=== PATIENT | female | born 1950 | race Caucasian/White ===

== ENCOUNTER → 2017-03-23 | Outpatient (CLI) | payer OTHER ==
[~2017-03-23] MED LIST: ALBUTEROL0.09 MG/A2 IH; ALLEGRA180 MG PO; AMOXIL500 MG PO; ATARAX,VISTARIL50 MG PO; ATIVAN1 MG PO; BENZTROPINE ME0.5 MG PO; BIAXIN500 MG PO; BUPRO; BUPROPION SR150 MG PO; BUPROPION XL PO; CLARITIN10 MG PO; DELSYM30 MG/5 ML PO; EFFEXOR; EFFEXOR-XR150 MG PO; LATU80TA PO; LISINOPRIL5 MG PO; MEDROL DOSEPAK4 MG PO; MIRTAZAPINE15 M2 PO; NORCO 325 MG-101 TAB PO; OLANZAPINE10 MG PO; OLANZAPINE7.5 M1 PO; PRAVASTATIN SOD40 MG PO; PREDNICOT10 MG PO; PROVENTIL0.09 MG/AC IH; RESPERAL; RISPERDAL2 MG PO; RISPERDAL3 MG PO; RISPERDAL4 MG PO; TRAZADONE HYDR100 MG PO; TRAZODO50 MG PO; TRAZODONE; TRIHEXYPHENIDYL2 M3 PO; VENLAFAXINE HCL75 M1 PO; VENLAFAXINE150 MG PO; VIBRAMYCIN100 MG PO; VITAMIN D50000 I3 PO; WELLBUT; Wellbutrin Xl150 MG PO; ZITHROMAX Z PA250 MG PO; ZYPREXA15 MG PO; ZYPREXA2.5 MG PO; ZYPREXA5 M1 PO
== END | disposition home or self-care (01) ==
LOC: RAD 15:17
DX: J44.9 Chronic obstructive pulmonary disease, unspecified (principal); J84.10 Pulmonary fibrosis, unspecified

== ENCOUNTER → 2019-06-04 | Outpatient (CLI) | payer OTHER ==
[2019-06-04 14:59] LABS: BASO % 0.1 % (0.0-1.0); EOS # 0.1 10*3/uL (0.0-0.4); EOS % 1.1 % (1.0-4.0); HEMATOCRIT 43.7 % (37.0-47.0); LYMPH % 32.6 % (27.0-41.0); MEAN CELL VOLUME 91.8 fl (81.0-99.0); MEAN CORPUSCULAR HGB 30.7 pg (27.0-31.0); MEAN CORPUSCULAR HGB CONC 33.4 g/dl (33.0-37.0); MEAN PLATELET VOLUME 9.9 fl (9.6-12.3); MONO # 0.9 10*3/uL (0.1-1.0); MONO % 9.1 % (3.0-9.0); NEUT # 5.3 10*3/uL (2.3-7.9); NEUT % 56.9 % (47.0-73.0); PLATELET COUNT AUTOMATED 215 10*3/uL (130-400); RED BLOOD COUNT 4.76 10*6/uL (4.10-5.10); RED CELL DISTRI WIDTH 13.2 % (0-14.5); WHITE BLOOD COUNT 9.3 10*3/uL (4.8-10.8)
[2019-06-04 15:28] LABS: ALBUMIN 3.1 gm/dl (3.1-4.5); ALKALINE PHOSPHATASE 105 U/L (45-117); BUN 15 mg/dl (7-24); CHLORIDE 112 mmol/L (98-107); CHOLESTEROL 180 mg/dL (<200); CREATININE 0.93 mg/dL (0.55-1.02); FREE T4 0.98 ng/dl (0.76-1.46); HDL CHOLESTEROL 51 mg/dl (40-60); LDL CHOLESTEROL 105 mg/dL (9-159); POTASSIUM 3.7 mmol/L (3.5-5.1); SGOT/AST 23 IU/L (3-35); SGPT/ALT 30 U/L (12-78); SODIUM 144 mmol/L (136-145); TOTAL PROTEIN 6.5 gm/dL (6.4-8.2); TRIGLYCERIDES 121 mg/dl (<150); VLDL CHOLESTEROL 24 mg/dL (6-40)
[2019-06-04 15:35] LABS: VITAMIN D, 25-HYDROXY 19.1 ng/mL (30-100)
== END | disposition home or self-care (01) ==
LOC: LAB 13:40
PROVIDERS: Internal Medicine
DX: Z13.21 Encounter for screening for nutritional disorder (principal); Z13.220 Encounter for screening for lipoid disorders; Z13.1 Encounter for screening for diabetes mellitus; I10 Essential (primary) hypertension; E78.2 Mixed hyperlipidemia; E55.9 Vitamin D deficiency, unspecified

== ENCOUNTER 2019-11-27 13:15 | Inpatient (IN) | payer OTHER ==
[~2019-11-27] VITALS: Ht 170.1 cm; Wt 37.9 kg
[2019-11-27 12:00] VITALS: BP 100/41
[2019-11-27 13:44] VITALS: BP 132/58
[2019-11-27 13:54] LABS: BASO % 0.1 % (0.0-1.0); HEMATOCRIT 37.7 % (37.0-47.0); LYMPH % 9.9 % (27.0-41.0); MEAN CELL VOLUME 91.7 fl (81.0-99.0); MEAN CORPUSCULAR HGB 29.9 pg (27.0-31.0); MEAN CORPUSCULAR HGB CONC 32.6 g/dl (33.0-37.0); MEAN PLATELET VOLUME 9.5 fl (9.6-12.3); MONO # 0.9 10*3/uL (0.1-1.0); MONO % 8.9 % (3.0-9.0); NEUT # 7.7 10*3/uL (2.3-7.9); NEUT % 80.9 % (47.0-73.0); PLATELET COUNT AUTOMATED 184 10*3/uL (130-400); RED BLOOD COUNT 4.11 10*6/uL (4.10-5.10); RED CELL DISTRI WIDTH 13.6 % (0-14.5); WHITE BLOOD COUNT 9.6 10*3/uL (4.8-10.8)
[2019-11-27 14:10] LABS: ALBUMIN 3.1 gm/dl (3.1-4.5); CREATININE 1.18 mg/dL (0.55-1.02); POTASSIUM 4.1 mmol/L (3.5-5.1); TOTAL PROTEIN 6.2 gm/dL (6.4-8.2)
[2019-11-27 14:15] LABS: ACT PARTIAL THROMBO TIME 23.6 SECONDS (20.0-32.1); INTERNATIONAL NORM RATIO 0.9 (2.0-3.5)
--- NOTE | 2019-11-27 14:23 | NUR ---
PATIENT RETURNS BACK TO ROOM FROM RADIOLOGY. NO VOICED C/O AT THIS TIME, CALL LIGHT WITHIN REACH, BED IN LOW, SIDE RAILS UP X2, WILL CONTINUE TO MONITOR.
--- NOTE | 2019-11-27 16:20 | NUR ---
AT BEDSIDE WITH PT
--- NOTE | 2019-11-27 16:25 | NUR ---
PER PATIENT IS ABLE TO HAVE A DINNER TRAY.
[2019-11-27 18:00] VITALS: BP 133/56
[2019-11-27] MEDS ORDERED: LORAZEPAM1 MG PO (19:01)
[2019-11-27] MEDS ORDERED: BENZTROPINE ME0.5 MG PO (19:01)
--- NOTE | 2019-11-27 19:12 | NUR ---
Time: 1799 A 69 year old FEMALE admitted to 5E under services of DR. BETTY HOOPER,RUSLAN Richards Pt. arrived via bed from ER. Chief complaint: CLOED RIGHT HIP FRACTURE. JUANA WALL
--- NOTE | 2019-11-27 19:13 | NUR ---
SPOKE TO DR. HERNÁNDEZ , TELEPHONE ORDER CONTINUATION OF MEDS, EKG, PT AND PTT.
[2019-11-27 20:00] VITALS: BP 125/52
[2019-11-27 20:14] LABS: ACT PARTIAL THROMBO TIME 24.9 SECONDS (20.0-32.1)
[2019-11-28] VITALS (11 sets, daily range): BP systolic 100–127; BP diastolic 37–55
--- NOTE | 2019-11-28 06:00 | NUR ---
PATIENT SLEPT WELL. SCD IN USE. NO ACUTE DISTRESS NOTED FOR SHIFT.
--- NOTE | 2019-11-28 09:00 | NUR ---
Fabric Coating Supervisor in to talk to patient. Patient states lives at home alone with a friend that does her grocery shopping for her and cleans her house. There are 0 steps in the home. Physician: Dr. Mikie Gardner Pharmacy: [facility] services: possible on d/c Patient's level of ADLs: INDEPENDENT Patient has working utilities: yes DME: none Follow-up physician's appointment after d/c: she prefers to make her own follow up appt after discharge Does patient want to access PORTAL?: no Discharge plan discussed with patient. She lives at home alone with a friend helping her. She states she is independent in her ADLs and ambulation prior to falling. Discussed short term rehab and she refuses. She states she is going home. She wanted to know when her surgery was. Explained her surgery was scheduled for 1330. She was upset stating she was going to leave. Explained that she needs surgery on hip before she can leave. She closed her eyes and turned her head away. CM will continue to follow for any discharge planning needs. ESTEVAN HAGAN
--- NOTE | 2019-11-28 16:11 | NUR ---
Chart reviewed this date. Patient had right hip repair by Dr Eisenberg today. Patient could benefit from Occupational Therapy referral for discharge planning. Thank you. Elysia Alexander OTR/L
--- NOTE | 2019-11-28 16:40 | NUR ---
REPORT REC'D FROM PACU NURSE EBER.
--- NOTE | 2019-11-28 17:06 | NUR ---
BACK TO ROOM FOLLOWING SURGERY. VSS. NO VOICED COMPLAINTS AT THIS TIME.
--- NOTE | 2019-11-28 21:45 | NUR ---
PT C.O PAIN, NO PRN PAIN MEDS ORDERED, DR KAYE CALLED & NEW ORDER REC'D.
--- NOTE | 2019-11-28 22:11 | NUR ---
NORCO GIVEN PER PT REQUEST FOR C/O 11/15 RT HIP PAIN. WILL MONITOR.
--- NOTE | 2019-11-28 23:11 | NUR ---
PRN PAIN MED EFFECTIVE PER PT
[2019-11-29] VITALS: BP 106/46
--- NOTE | 2019-11-29 04:52 | NUR ---
NORCO GIVEN PER PT REQUEST FOR PAIN TO RT HIP
--- NOTE | 2019-11-29 05:52 | NUR ---
NORCO EFFECTIVE PER PT
[2019-11-29 06:26] LABS: BASO % 0.1 % (0.0-1.0); EOS % 0.2 % (1.0-4.0); HEMATOCRIT 32.1 % (37.0-47.0); LYMPH # 2.2 10*3/uL (1.3-4.4); LYMPH % 23.1 % (27.0-41.0); MEAN CELL VOLUME 91.2 fl (81.0-99.0); MEAN CORPUSCULAR HGB 29.8 pg (27.0-31.0); MEAN CORPUSCULAR HGB CONC 32.7 g/dl (33.0-37.0); MONO # 1.2 10*3/uL (0.1-1.0); MONO % 12.6 % (3.0-9.0); NEUT % 63.7 % (47.0-73.0); PLATELET COUNT AUTOMATED 158 10*3/uL (130-400); RED BLOOD COUNT 3.52 10*6/uL (4.10-5.10); RED CELL DISTRI WIDTH 13.5 % (0-14.5); WHITE BLOOD COUNT 9.4 10*3/uL (4.8-10.8)
[2019-11-29 08:00] VITALS: BP 113/48
--- NOTE | 2019-11-29 08:14 | NUR ---
PATIENT COMPLAINS OF RIGHT HIP PAIN 8 OF 10. GIVEN NORCO ORDERED. WILL MONITOR EFFECTIVENESS. CALL LIGHT WITHIN REACH.
--- NOTE | 2019-11-29 08:30 | NUR ---
PHYSICAL THERAPY Physical Therapy evaluation completed on 5th floor with full evaluation to follow. Recommend physical therapy per plan of care and SNF upon discharge. Thank you for this referral. Crow Hernandez SPT Ida Stern PT
--- NOTE | 2019-11-29 09:00 | NUR ---
CM in to see patient. She is sitting up in her bedside chair. Discussed short term rehab and she adamantly refuses. She states she will be returning home. Discussed her living by herself and who was going to help her at home. She states she doesn't have any help at home and she will get along just fine. She does have someone who gets her groceries for her and a cleaning lady that comes once a week. Discussed home health care services and she is agreeable. When provided with a list of facilities [facility]. CM will continue to follow for discharge planning needs.
--- NOTE | 2019-11-29 12:52 | NUR ---
Patient sitting up in her bedside chair. Discussed short term rehab and she continues to refuse. CM will continue to follow for any discharge planning needs.
[2019-11-29 13:00] VITALS: BP 104/50
--- NOTE | 2019-11-29 14:31 | NUR ---
PHYSICAL THERAPY PT SITTING IN REDCLINER UPON ARRIVAL. PT IDENTIFIED BY NAME AND . PT AGREED TO ALL TREATMENT THIS VISIT. OT PRESENT FOR TREATMENT. PT C/O 9/10 PAIN IN R HIP. PT RPEROTED "DON'T TOUCH ME" BUT WITH VC'S AND CALM TALKING PT LET THIS DINING CAR SERVER TOUCH PT FOR ASSIATANCE WITH TRANSFERS. THIS DINING CAR SERVER HELD PTS RLE AND LOWERED RECLINER. ONCE RECLINER WAS LOWERED PT PERFORMES STS TRANSFER FROM RECLINER TO FWW WITH VC'S AND TACTILE CUES FOR HAND PLACEMENT AND SAFETY. PT PERFORMED 4 STEPS FW AND 4 STEPS BW WITH FWW AND SBA. PT PERFORMED STS TO EOB WITH CGA AND VC'S FOR HAND PLACEMENT AND SAFETY. PT PERFORMES SIT TO SUPINE IN BED WITH MINaX1 OF RLE. DDEPENDANT LIFT X2 TO MOVE PT UP IN BED WITH SHEET UNDER PT. CALL LIGHT IN HAND AND BED ALARM ON AT END OF SESSION WITH NUSRING COMING IN TO ROOM. PT REPORTED NO OTHER NEEDS AT THIS TIME. PT SEE FOR 15MIN 1:1. FARNAZ DAVIS DINING CAR SERVER
--- NOTE | 2019-11-29 15:17 | NUR ---
Occupational Therapy evaluation completed on the 5th floor with full eval to follow. Moderate complexity level. Precautions: WBAT right hip, fall risk, alarm. Recommend SNF. Thank you for this referral, Mandy Doan OTR/L
[2019-11-29 20:00] VITALS: BP 99/45
--- NOTE | 2019-11-29 21:42 | NUR ---
NORCO GIVEN PER ORDER FOR PAIN IN RIGHT HIP POST SURGERY RATED "6" SEE MAR.
--- NOTE | 2019-11-29 22:40 | NUR ---
NORCO EFFECTIVE FOR PAIN PER PT.
[2019-11-30] VITALS: BP 98/46
[2019-11-30 07:24] LABS: BASO % 0.1 % (0.0-1.0); EOS % 0.6 % (1.0-4.0); HEMATOCRIT 31.2 % (37.0-47.0); LYMPH % 28.7 % (27.0-41.0); MEAN CELL VOLUME 91.2 fl (81.0-99.0); MEAN CORPUSCULAR HGB 30.1 pg (27.0-31.0); MEAN PLATELET VOLUME 9.8 fl (9.6-12.3); MONO # 0.7 10*3/uL (0.1-1.0); MONO % 10.5 % (3.0-9.0); NEUT # 4.2 10*3/uL (2.3-7.9); PLATELET COUNT AUTOMATED 150 10*3/uL (130-400); RED BLOOD COUNT 3.42 10*6/uL (4.10-5.10); RED CELL DISTRI WIDTH 13.5 % (0-14.5)
[2019-11-30 08:00] VITALS: BP 108/40
--- NOTE | 2019-11-30 09:30 | NUR ---
Pt states that pain medication was effective.
--- NOTE | 2019-11-30 11:41 | NUR ---
Pt sitting up in chair at this time. States she is currently not experiencing much pain. Denies needs at this time.
[2019-11-30 12:00] VITALS: BP 116/43
--- NOTE | 2019-11-30 14:37 | NUR ---
Assisted pt to walk from sitting in chair which was next to the window. Pt walked from chair out into mendoza and then wanted to get back to bed. Pt walked with walker and minimal assistance from staff. Assisted pt back to bed, scd's reapplied once in bed and pt requested that all 4 side rails be raised. Body alarm armed.
[2019-11-30 16:00] VITALS: BP 101/40
--- NOTE | 2019-11-30 16:13 | NUR ---
Medicated with norco per prn order for complaints of pain to rt hip pain. States pain is 3/10.
--- NOTE | 2019-11-30 17:05 | NUR ---
States that pain medication was effective.
[2019-11-30 20:00] VITALS: BP 123/42
--- NOTE | 2019-11-30 22:06 | NUR ---
MYACO GIVEN PER ORDER FOR PAIN IN RIGHT HIP HURTS WITH MOVEMENT RATED "7-8" SEE MAR.
--- NOTE | 2019-11-30 23:00 | NUR ---
NORCO EFFECTIVE FOR PAIN PER PT.
[2019-12-01] VITALS: BP 104/49
--- NOTE | 2019-12-01 01:27 | NUR ---
24 HR chart check completed.
[2019-12-01 06:53] LABS: BUN 10 mg/dl (7-24); CHLORIDE 108 mmol/L (98-107); POTASSIUM 3.5 mmol/L (3.5-5.1); SODIUM 142 mmol/L (136-145)
[2019-12-01 08:00] VITALS: BP 119/53
--- NOTE | 2019-12-01 08:23 | NUR ---
COMPLETE LINEN CHANGE PROVIDED ATTEMPTED TO PROVIDE PERICARE BUT PT REFUSED. PROVIDED BSC. PT UP WITH WALKER TO BSC. PT TOLERATED WELL. PT STATES AT THIS TIME TO NOT "TOUCH HER".SCDS OFF REFUSES TO REAPPLY. EDUCATION PROVIDED REGARDING CALL LIGHT USAGE AND NOT ATTEMPTING TO GET OUT OF BED WITHOUT ASSISTANCE. PT VOICES NO OTHER NEEDS AT THIS TIME.BED ALARM INTACT.WILL CONTINUE TO MONITOR.
--- NOTE | 2019-12-01 08:56 | NUR ---
NORCO 5/325 MG GIVEN FOR C/O RIGHT HIP/SHOULDER/ LOWER BACK PAIN.11/15.
--- NOTE | 2019-12-01 12:00 | NUR ---
PHYSICAL THERAPY PATIENT SEEN TODAY FOR 1:1 SESSION WITH THIS PT. COMPLETED SUPINE LYING BLE THER EX FOR 2 SETS OF 10 WITH FOCUS ON IMPROVING ROM AND STRENGTH. SUPINE TO SIT WITH MIN/MOD OF 1 TO EOB AND THEN COMPLETED SIT TO STAND WITH MOD OF 1. GAIT WITH FWW FOR 10 FT X 2 WITH MOD OF 1 TODAY WITH WBAT. UPON COMPLETION OF SESSION WAS PLACED UP IN RECLINER WITH CALL LIGHT IN REACH AND NURSING STAFF AWARE SHE WAS UP. D/C REC REMAIN FOR SNF BUT IMPROVEMENT NOTED WITH SESSION TODAY. STILL GETS EASILY AGITATED DURING SESSION STATING "DONT TOUCH MY BACK" LET ME DO IT ON MY OWN". THANK YOU EROS ROTH PT
--- NOTE | 2019-12-01 13:00 | NUR ---
PHYSICAL THERAPY PATIENT SEEN TODAY FOR 1:1 SESSION WITH THIS PT. SESSION CONSISTED OF SUPINE LYING THER EX FOR 2 SETS OF 15 REPS AND THEN WORKED ON BED MOBILITY ROLLING L AND R WITH RAILING FOR 4 REPS THEN SUP <> SIT WITH MIN/CGA OF 1 WITH 50% CUES. ONCE UP ON SIDE OF BED DID SEATED BALANCE ACTIVITIES THEN DID STS FROM SIDE OF BED FOR 3 REPS; REFUSED TO GET UP IN CHAIR TODAY STATING SHE WANTED TO LAY BACK DOWN AND REST. D/C PLANS REMAIN FOR SNF. THANK YOU EROS ROTH PT
--- NOTE | 2019-12-01 14:31 | NUR ---
ATIVAN 1 MG GIVEN PER PT REQUEST FOR ANXIETY.
[2019-12-01 16:00] VITALS: BP 106/49
--- NOTE | 2019-12-01 18:24 | NUR ---
NORCO 5/325 MG GIVEN FOR C/O PAIN TO BACK AND RIGHT HIP,09/15.
--- NOTE | 2019-12-01 20:00 | NUR ---
Patient resting quietly with no c/o discomfort. Respirations easy and regular. Vital signs stable. No overt distress. ALBAN BLANDON
--- NOTE | 2019-12-01 21:06 | NUR ---
MEDICATED WITH PO NORCO ORDERED PER PT REQUEST FOR C/O PAIN TO RIGHT SHOULDER AND BACK RATED 8/10.
--- NOTE | 2019-12-01 22:00 | NUR ---
MEDICATION EFFECTIVE FOR PAIN.
[2019-12-02] VITALS: BP 124/58
--- NOTE | 2019-12-02 00:57 | NUR ---
24 HR chart check completed.
--- NOTE | 2019-12-02 04:00 | NUR ---
Patient resting quietly with no c/o discomfort. Respirations easy and regular. Vital signs stable. No overt distress. ALBAN BLANDON
--- NOTE | 2019-12-02 05:35 | NUR ---
MEDICATED WITH PO NORCO ORDERED PER PT REQUEST FOR C/O PAIN TO BACK AND RIGHT SHOULDER RATED 5/10.
--- NOTE | 2019-12-02 06:30 | NUR ---
MEDICATION EFFECTIVE FOR PAIN.
[2019-12-02 08:00] VITALS: BP 108/42
--- NOTE | 2019-12-02 09:00 | NUR ---
CM in to see patient. Discussed short term rehab and she adamantly refuses. Discussed home health care services and she remains agreeable. Discussed who was going to help her at home. She states she will get along just fine. When medically stable she will be discharged to home with [facility] services.
--- NOTE | 2019-12-02 09:23 | NUR ---
OT NOTE Pt was seen this A.M. 1:1 for 20 minute OT session. Upon arrival pt was supine in bed. Pt identified by name and and had complaints of 8/10 R hip pain. Pt transferred supine to sit EOB with SBA. While sitting EOB pt donned B socks with SBA. Sit to stand completed from bed level with SBA and use of w/w for UE support. Challenged pt's static standing tolerance needed for increased I in self care tasks and functional transfers. Pt was able to tolerate aprox 3 minutes at a time before sitting due to fatigue and pain. Pt then completed functional mobility to the bedside commode with SBA and use of w/w. There she transferred on/off bedside commode with SBA and use of w/w. Functional mobility completed back to the EOB where she stated "I'm done" and transferred back into bed sit to supine with SBA. There she was left with call light in hand, tray table in place, and bed alarm activated for safety. Continue with rec D/C plan to SNF. JOLANTA Renteria/Nubia
--- NOTE | 2019-12-02 10:21 | NUR ---
PHYSICAL THERAPY TREATMENT TIME: IN 09:12 AM - 09;30 AM 22 MINUTES TOTAL Patient presented to therapy in supine in bed with head of bed elevated and bed alarm on. Patient was 8/10 R hip pain. Patient gives inforemd consent for treatment. Patient was identified by name and on wristband. Patient is somewhat grumpy this morning. Patient transferred supine to sititng on EOB with SBA. Patient does not want assisted or touched in anyway. Patient sat on EOB with SBA. Patient transferred STS <> EOB with SBA. Patient performed Patient ambulated with Wh Walker and Close Supervision/SBA for 5' x 1 to bedside commode standing tolerance. Patient STS <> bedside commode with SBA. Patient ambulated back to her bedside with Wh Walker and SBA. Patient very adament about not touching her or assisting her in any way. Patient SAT in EOB AND TRANSFERRED SIT EOB > supine with SBA. Patient was left in supine in bed with head bed elevated and bed alarm activated. Patient's tray table left near patient. Patient was 1:1 with this LOCAL DELIVERY TRUCK DRIVER for 22 minutes total. EMMETT VENTURA LOCAL DELIVERY TRUCK DRIVER
--- NOTE | 2019-12-02 13:30 | NUR ---
OT NOTE Pt was seen this P.M. 1:1 for 19 minute OT session. Upon arrival pt was supine in bed. Pt identified by name and and had complaints of 9/10 R hip pain. Pt transferred supine to sit EOB with SBA. Sit to stand completed from bed level with SBA and use of w/w for UE support. Functional mobility completed to the bathroom and back with SBA and use of w/w. While sitting in the recliner pt completed BUE towel exercises with min resistance over all planes for 1 X 10 to increase and restore maximum functional strength. Pt was left sitting upright in the recliner with call light in hand, tray table in place, and body alarm activated for safety. Continue with rec D/C plan to SNF. JOLANTA Renteria/Nubia
--- NOTE | 2019-12-02 14:01 | NUR ---
PHYSICAL THERAPY treatment time: Out 1:35 PM 18 MINUTES TOTAL Patient presented to therapy in supine with report of R hip pain that she couldnt verbalize a number to. Patient gives informed consent for treatment. Patient was identified by name and on wristband. Patient performed supine ot sitting at EOB transfer with SBA. PATIENT DOES NOT WANT THE THERAPIST TO TOUCH HER OR ASSIST WITH TRANSFER. Patient sat on EOB unassissted. Patient transferred STS from EOB with SBA. Patient performed ambulated 40' x 1 with Wh Walker and SBA with no LOB or other difficulty. Patient was left sitting in bedside chair with call light withiun reach and chair alarm tested and attached to patient. Patient did not want the chair moved to over beside the bed, so she was left in chair at foot of bed with chair alarm on. Patient was 1:1 with this WATCHSTANDER for 16 minutes total. EMMETT VENTURA WATCHSTANDER
--- NOTE | 2019-12-02 14:44 | NUR ---
CM in to see patient with Dr. Gardner. Patient is agreeable to short term rehab. When provided with a list of facilities she chose [facility]. maintenance and repair worker notified.
--- NOTE | 2019-12-02 15:00 | NUR ---
COVID SWAB SENT TO LAB
--- NOTE | 2019-12-02 15:16 | NUR ---
PRECERT IS REQUIRED. WEB DESIGNER DEVELOPER FAXED REFERRAL TO [facility]. WILL NEED COVID RESULTS.
--- NOTE | 2019-12-02 15:47 | NUR ---
MEDICATED WITH NORCO FOR COMPLAINTS OF PAIN IN RIGHT HIP. RATES PAIN AN 8 ON A PAIN SCALE OF 1-10
[2019-12-02 16:00] VITALS: BP 128/47
--- NOTE | 2019-12-02 16:30 | NUR ---
VOICES THAT NORCO WAS EFFECTIVE FOR PAIN
[2019-12-02 20:01] VITALS: BP 119/38
--- NOTE | 2019-12-02 22:31 | NUR ---
PATIENT C/O R HIP PAIN. REQUESTING A NORCO. RATES 08/15. MEDICATED AT THIS TIME. WILL CHECK EFFECTIVENESS.
--- NOTE | 2019-12-02 23:31 | NUR ---
PATIENT RESTING COMFORTABLY. MEDICATION EFFECTIVE.
[2019-12-03] VITALS: BP 149/57
[2019-12-03 06:18] LABS: EOS # 0.1 10*3/uL (0.0-0.4); EOS % 1.4 % (1.0-4.0); HEMATOCRIT 30.3 % (37.0-47.0); LYMPH # 1.9 10*3/uL (1.3-4.4); LYMPH % 33.5 % (27.0-41.0); MEAN CELL VOLUME 91.8 fl (81.0-99.0); MEAN CORPUSCULAR HGB CONC 32.7 g/dl (33.0-37.0); MEAN PLATELET VOLUME 9.2 fl (9.6-12.3); MONO # 0.7 10*3/uL (0.1-1.0); MONO % 12.4 % (3.0-9.0); NEUT # 2.9 10*3/uL (2.3-7.9); NEUT % 52.3 % (47.0-73.0); PLATELET COUNT AUTOMATED 221 10*3/uL (130-400); RED CELL DISTRI WIDTH 13.1 % (0-14.5); WHITE BLOOD COUNT 5.6 10*3/uL (4.8-10.8)
[2019-12-03 06:20] LABS: CREATININE 0.65 mg/dL (0.55-1.02)
[2019-12-03 08:00] VITALS: BP 121/62
--- NOTE | 2019-12-03 08:36 | NUR ---
Nikki called requesting additional clinicals. Faxed clinicals to [phone]
--- NOTE | 2019-12-03 11:12 | NUR ---
PHYSICAL THERAPY treatment time: 11:12 am - 11:25 am 13 minutes total Patient presented to therapy in supine wih head of bed elevated and bed alarm on. Patient reports a pain level of the R hip of 7/10. Patient had no other concerns. Patient gives informed consent. Patient was identified by name and on wristband. WBAT and no hip restrictions on the R hip. Patient performed supine <> sitting EOB with SBA. Patient performed STS from EOB with SBA. Patient ambulated 50' x 1 inside room only with SBA with Wh Walker. Patient perofmred LAQs in sititng in bedside chair 2 x 10 reps each. Patien tdid not feel like doing any further ther ex. Patient was left in sitting in bedside chair with alarm tested and attached to patient, call light within reach and tray table near patient. LEs in low position. Patient was 1:1 with this INSTRUCTOR OF NURSING for 13 minutes total. EMMETT VENTURA INSTRUCTOR OF NURSING
--- NOTE | 2019-12-03 11:20 | NUR ---
OT NOTE Pt was seen this A.M. 1:1 for 15 minute OT session. Upon arrival pt was supine in bed. Pt identified by name and and had complaints of 7-8/10 R hip pain, While sitting EOB pt donned B socks with SBA. Sit to stand completed from bed level with SBA and use of w/w for UE support functional mobility completed to the bathroom and back with SBA and use of w/w. Challenged pt's dynamic standing balance while weight shifting, crossing midline, and reaching over all planes. Pt was able to maintain F+ standing balance throughout. Pt was left sitting upright in the recliner with call light in hand, tray table in place, and body alarm activated for safety. Continue with rec D/C plan to SNF. JOLANTA Renteria/Nubia
--- NOTE | 2019-12-03 12:32 | NUR ---
PRECERT HAS BEEN STARTED FOR [facility]. [facility] HAS ACCEPTED THE PATIENT. WILL NEED COVID RESULTS BEFORE ADMISSION TO [facility].
--- NOTE | 2019-12-03 14:03 | NUR ---
OT NOTE Pt was seen this P.M. 1:1 for second OT session consisting of 15 minutes. Upon arrival pt was supine in bed. Pt identified by name and and had no complaints at this time. Pt declined any out of bed activity at this time however did agree to BUE ther ex. Pt completed BUE towel exercises over all planes for 1 X 10 with mod resistance to increase and restore maximum functional strength. Pt transferred back into bed sit to supine with SBA. THere she was left with call light in hand, tray table in place, and bed alarm activated for safety. Continue with rec D/C plan to SNF. JOLANTA Renteria/Nubia
--- NOTE | 2019-12-03 15:06 | NUR ---
PHYSICAL THERAPY TREATMENT TIME: IN 2:10 PM - 2:25 AM 15 MINUTES TOTAL Patient presented to therapy with R hip pain of 7/10. Patient was supine in bed with head of bed elevated and bed alarm on. Patient gives informed consent for treatment. Patient was identified by name and on wristband. Patient is WBAT on the R hip. Patient uses a Wh Walker. Patient performed all transfers with SBA. BED MOBILITY with SBA. Patient ambulated 50' x 1 inside room only with Close Supervision. Patient tolerated treatment well with no LOB and no increased R hip pain. Patient transferred back to supine in bed with SBA. Patient was left in supine in bed with head of bed elevated and bed alarm on. Patient's call light was left within reach. Patient was 1:1 with this CLINICAL INFORMATICS DIRECTOR for 15 minutes total. EMMETT VENTURA CLINICAL INFORMATICS DIRECTOR
--- NOTE | 2019-12-03 19:30 | NUR ---
PATIENT UPSET SHE DID NOT RECEIVE HER DINNER. PATIENT STATES SHES VERY HUNGRY. PATIENT GIVEN BOX LUNCH.
[2019-12-03 20:00] VITALS: BP 135/52
[2019-12-04] VITALS: BP 124/51
--- NOTE | 2019-12-04 01:15 | NUR ---
PATIENT C/O RIGHT HIP PAIN. RATES 07/16. MEDICATED WITH NORCO AT THIS TIME. WILL CHECK EFFECTIVENESS.
--- NOTE | 2019-12-04 02:15 | NUR ---
PATIENT STATES FORGAN IS HELPING A LITTLE. WILL CONTINUE TO MONITOR.
--- NOTE | 2019-12-04 04:00 | NUR ---
PATIENT SLEEPING, NO SIGNS OF DISTRESS. RESPIRATIONS EASY, NON LABORED. BED IN LOWEST POSITION,CALL LIGHT WITHIN REACH. BED ALARM ON. WILL CONTINUE TO MONITOR.
[2019-12-04 08:00] VITALS: BP 124/65
--- NOTE | 2019-12-04 08:03 | NUR ---
PRECERT IS PENDING. TELEVISION MAINTENANCE WORKER FAXED UPDATES TO [facility].
--- NOTE | 2019-12-04 09:09 | NUR ---
PRECERT IS PENDING. ARABIC TRANSLATOR COMPLETED HENS.
--- NOTE | 2019-12-04 09:38 | NUR ---
PHYSICAL THERAPY TREATMENT TIME: IN 09:30 AM - OUT 09:46 AM 16 MINUTES TOTAL Patient presented to therapy in supine in bed with head of bed elevated and bed alarm on. Patient reports pain in the R hip. Patient gives informed consent for treatment. Patient was identified by name and on wristband. Patient is WBAT on the R LE. Patient uses a Wh Walker. No hip precautions. Patient performed supine <> sit EOB with SBA. Patient does not want therapist to touch her or assist her in any way. Patient STS from EOB with SBA. Patient ambulated with Wh Walker Close Supervision for 45' x 1 with no LOB and no other difficulty. Patient STS from commode with SBA. Patient transferred back to supine in bed with SBA. Patient was left in supine in bed with head of bed elevated and bed alarm on. Call light within reach. Patient was 1:1 with this HABITAT MANAGEMENT COORDINATOR for 16 minutes total. EMMETT VENTURA HABITAT MANAGEMENT COORDINATOR
--- NOTE | 2019-12-04 09:40 | NUR ---
OT NOTE Pt was seen this A.M. 1:1 for 15 minute OT session. Upon arrival pt was sitting upright in the recliner. Pt identified by name and and had complaints of R hip being "sore" however did not rate on 0-10 pain scale. Pt completed sit to stand from chair level with SBA and use of w/w for UE support. Functional mobility completed to the bathroom with SBA and use of w/w. There she transferred on/off standard commode with SBA. Functional mobility completed back to the EOB with SBA and use of w/w. There she transferred sit to supine with SBA where she was left with call light in hand, tray table in place, and bed alarm activated for safety. Continue with rec D/C plan to SNF. JOLANTA Renteria/Nubia
--- NOTE | 2019-12-04 13:16 | NUR ---
OT NOTE Pt was seen this P.M. 1:1 for second OT session consisting of 15 minutes. Upon arrival pt was supine in bed. Pt identified by name and and had complaints of R hip pain which she rated a 8/10. Pt transferred supine to sit EOb with SBA. Pt donned B socks with SBA. Sit to stand completed from bed level with SBA and use of w/w. Functional mobility completed to the bathroom and back with SBA and use of w/w. Challenged pt's dynamic standing balance while weight shifting, crossing midline, and reaching over all planes. Pt was able to maintain F+ standing balance throughout. Pt was left sitting upright on the EOB with call light in hand, tray table in place, and bed alarm activated for safety. Continue with rec D/C plan to SNF. JENNIE Renteria
--- NOTE | 2019-12-04 14:40 | NUR ---
PHYSICAL THERAPY TREATMENT TIME: IN 1304 17 MINUTES TOTAL Patient presented to therapy in supine with head of bed elevated and in a very bad mood this afternoon. Patient bed alarm is on. Patient gives informed consent for treatment. Patient was identified by name and on wristband. Patient is WBAT and no hip precautions for R hip. Patient uses a Wh Walker. Patient performed supine to sitting on EOB with SBA. PATIENT DOES NOT WANT THERAPIST TO TOUCH HER OR ASSIST HER IN ANY WAY. JOLANTA Hernandez was present for treatment as witness. Patient performed gait with Wh Walker and Close Supervision for 45' x 1 with no LOB or other difficulty. STS from Commode with SBA. Patient performed 30 second STS test with 6 Sit to stands performed in 30 seconds time from EOB. Patient transferred back to supine in bed with SBA. Patient was 1:1 with this HEMATOLOGY NURSE EDUCATOR for 17 minutes total. EMMETT VENTURA HEMATOLOGY NURSE EDUCATOR
[2019-12-04 16:00] VITALS: BP 124/65
--- NOTE | 2019-12-04 16:39 | NUR ---
PATIENT HAD HARD DARK-COLORED BM. DULCOLAX SUPPOSITORY NOT NEEDED AT THIS TIME, PER PATIENT. ENCOURAGED TO REQUEST THE MED AGAIN IF NEEDED.
--- NOTE | 2019-12-04 20:00 | NUR ---
SITTING UP IN BED. NO C/O PAIN. INCISION SITE TO RT HIP ASYMTOMATIC. ASSESSMENT COMPLETED SEE FLOWSHEET. TOOK PO MEDS WITHOUT DIFFICULTY. CALL LIGHT IN REACH.
[2019-12-05] VITALS: BP 113/44
--- NOTE | 2019-12-05 07:48 | NUR ---
PRECERT IS STILL PENDING THIS MORNING PER [facility]. PRECERT WAS STARTED ON 12/03/2019.
[2019-12-05 08:00] VITALS: BP 120/48
--- NOTE | 2019-12-05 08:06 | NUR ---
INSURANCE REQUESTED UPDATED PT/OT NOTES. STRAINER MILL OPERATOR FAXED RECENT NOTES FROM YESTERDAY TO [facility]. PRECERT IS PENDING.
--- NOTE | 2019-12-05 08:29 | NUR ---
MEDICATED WITH PRN NORCO PER ORDER AND REQUEST FOR BACK PAIN.
--- NOTE | 2019-12-05 09:25 | NUR ---
OT NOTE Pt was seen this A.M. 1:1 for 15 minute OT session. Upon arrival pt was supine in bed. Pt identified by name and and had complaints of 10/10 low back pain and 5/10 R hip pain. Pt transferred supine to sit EOB with SBA. Pt donned B socks with SBA while sitting EOB. Sit to stand completed from bed level with SBA and use of w/w. Functional mobility completed to the bathroom with SBA and use of w/w. There she transferred on/off standard commode with SBA. Functional mobility completed back to the recliner with SBA and use of w/w for UE support. Pt presented with G- standing balance throughout. Pt was left sitting upright in the recliner with call light in hand and tray table in place. Attempted multiple times to sandra body alarm and pt would self remove, notified pt's nurse that she was sitting up in the chair with no alarm activated. Nurse gave approval for pt to remain in chair. Continue with rec D/C plan to SNF. JOLANTA Renteria/Nubia
--- NOTE | 2019-12-05 09:25 | NUR ---
URIEL HELPED. PATIENT UP IN CHAIR BY PHYSICAL THERAPY.
--- NOTE | 2019-12-05 09:44 | NUR ---
PHYSICAL THERAPY TREATMENT TIME: IN 09:11 - 09:21 AM 10 MINUTES Patient presented to therapy in supine in bed with head of bed elevated and bed alarm on. Patient has report of 10/10 LBP in the low back and 5/10 pain in the R hip. Patient gives informed consent. Patient was identified by name and on wristband. Patient performed supine to sitting on EOB with SBA. Patient sat on EOB with SBA. Patient completed STS from EOB with SBA. Patient ambulated with Wh Walker and Close Supervision for 72' x 1, inside room only with no LOB and safe 180 degee turns. Patient performed STS from commode with SBA. Patient was left in bedside chair with call light witin reach and LEs in low position. Patient refused the Chair alarm 2 Xs. SHEA Godinez was informed of patient refusing the chair alarm . Patient was 1:1 with this REGIONAL FACILITIES SPECIALIST for 10 minutes total. EMMETT VENTURA REGIONAL FACILITIES SPECIALIST
--- NOTE | 2019-12-05 13:30 | NUR ---
PRECERT HAS BEEN DENIED.
--- NOTE | 2019-12-05 14:00 | NUR ---
OT NOTE Pt was seen this P.M. 1:1 for 15 minute OT session. Upon arrival pt was supine in bed. Pt identified by name and and had complaints of 9/10 R hip pain. Pt transferred supine to sit EOB with SBA. Sit to stand completed from bed level with SBA and use of w/w for UE support. Challenged pt's dynamic standing balance while weight shifting, crossing midline, and reaching over all planes and pt was able to maintain F+ standing balance throughout. Functional mobility completed to the bathroom and back and around her room with SBA and use of w/w. Pt then transferred back into bed sit to supine with SBA where she was left with call light in hand, tray table in place, and bed alarm activated for safety. Continue with rec D/C plan to SNF. JOLANTA Renteria/Nubia
--- NOTE | 2019-12-05 14:07 | NUR ---
PHYSICAL THERAPY TREATMENT TIME: OUT - 1400 15 MINUTES TOTAL Patient presented to therapy in supine with head of bed elevated and bed alarm on. Patient reports pain in the R hip of 9/10 in the R hip caused by being moved by the CNAs, according to the patient. Patient gives informed consent for treatment. Patient was identified by name and on wristband. Patient performed all bed mobility and transfers with SBA. Patient ambulated 72' x 1 inside room only, with Wh Walker and Close Supervision. Patient was in pain, so she didn't want ot do any further therapy. Patient transferred back to supine in bed with SBA. Patient was left in supine in bed with head of bed elevated, call light within reach and bed alarm on. Patient was 1:1 with this POWDER ROOM ATTENDANT for 15 minutes total. EMMETT VENTURA POWDER ROOM ATTENDANT
--- NOTE | 2019-12-05 14:56 | NUR ---
Notified Dr. Gardner of SNF denial. Peer to peer set up. Awaiting response.
[2019-12-05 16:00] VITALS: BP 116/46
--- NOTE | 2019-12-05 18:14 | NUR ---
MEDICATED WITH PRN MORCO PER ORDER AND REQUEST FOR C/O R HIP AND BACK PAIN.
[2019-12-06] VITALS: BP 142/65
--- NOTE | 2019-12-06 00:03 | NUR ---
PATIENT MEDICATED WITH NORCO FOR COMPLAINTS OF RIGHT LEG PAIN. WILL MONITOR FOR EFFECTIVENESS. CALL LIGHT IN REACH.
--- NOTE | 2019-12-06 00:55 | NUR ---
NORCO EFFECTIVE AT THIS TIME. PATIENT IN BED SLEEPING. NO SIGNS OR SYMPTOMS OF DISTRESS NOTED. CALL LIGHT IN REACH.
[2019-12-06 06:32] LABS: BASO % 0.2 % (0.0-1.0); EOS # 0.1 10*3/uL (0.0-0.4); EOS % 0.9 % (1.0-4.0); HEMATOCRIT 33.2 % (37.0-47.0); LYMPH # 2.2 10*3/uL (1.3-4.4); LYMPH % 33.6 % (27.0-41.0); MEAN CELL VOLUME 92.7 fl (81.0-99.0); MEAN CORPUSCULAR HGB 30.2 pg (27.0-31.0); MEAN CORPUSCULAR HGB CONC 32.5 g/dl (33.0-37.0); MEAN PLATELET VOLUME 8.8 fl (9.6-12.3); MONO # 0.7 10*3/uL (0.1-1.0); MONO % 11.2 % (3.0-9.0); NEUT # 3.5 10*3/uL (2.3-7.9); NEUT % 53.8 % (47.0-73.0); PLATELET COUNT AUTOMATED 323 10*3/uL (130-400); RED BLOOD COUNT 3.58 10*6/uL (4.10-5.10); RED CELL DISTRI WIDTH 13.3 % (0-14.5); WHITE BLOOD COUNT 6.5 10*3/uL (4.8-10.8)
[2019-12-06 07:02] LABS: CREATININE 0.63 mg/dL (0.55-1.02)
--- NOTE | 2019-12-06 07:29 | NUR ---
DENIAL HAS BEEN OVER TURNED. PRECERT HAS BEEN OBTAINED. PATIENT CAN GO TO [facility] IF MEDICALLY STABLE. CRIMPER OPERATOR HAS BEEN NOTIFIED.
--- NOTE | 2019-12-06 07:30 | NUR ---
Notified Dr. Gardner patient can be discharged to [facility] when medically stable.
[2019-12-06 08:00] VITALS: BP 124/62
--- NOTE | 2019-12-06 08:20 | NUR ---
OT NOTE Pt was seen this A.M. 1:1 for 30 minute OT session. Upon arrival pt was supine in bed. Pt identified by name and and had complaints of 5/10 R hip pain. Pt transferred supine to sit EOB with SBA. Sit to stand completed from bed level with SBA followed by functional mobility to the bathroom and back with SBA and use of w/w. While sitting EOB pt doffed gown with SBA. Completed upper body and lower body bathing with SBA. Pt donned new socks and underpants with Sweta due to requiring assist for donning over her R foot due to pain. Pt donned new gown with SBA and completed hair care SBA. Pt was left sitting upright on the EOB with call light in hand, tray table in place, and bed alarm activated for safety. Continue with rec D/C plan to SNF. JOLANTA Renteria/Nubia
--- NOTE | 2019-12-06 09:10 | NUR ---
PHYSICAL THERAPY TREATMENT TIME: IN 07:58 - OUT 09:20 AM 22 MINUTES TOTAL Patient presented to therapy in supine with head of bed elevated and bed aalrm on. Patient gives a 5/10 pain level in the R hip. Patient gives informed consent for treatment. Patient was identified by name and on wristband. Patient performed upine to sitting on EOB with SBA. Patient performed STS from EOB with SBA. Patient ambulated with Wh Walker and Close Supervison for 48' x 1 with no LOB with 180 degree turns. Patient sat on EOB for 10 minutes sitting tolerance with SBA. Patient transferred back to supine in bed with SBA. Patient was left in sitting on EOB with tray table and breakfast in front of her with call light within reach. Patient was 1:1 with this TEXTILE CUTTING MACHINE OPERATOR for 22 minutes total. JOLANTA Boston was presnt as witness to this treatment. EMMETT VENTURA TEXTILE CUTTING MACHINE OPERATOR
--- NOTE | 2019-12-06 10:34 | NUR ---
OT NOTE Pt was seen this A.M. 1:1 for second OT session consisting of 15 minutes. Upon arrival pt was sitting EOB with bed alarm sounding. Pt requesting to go to the bathroom. Pt identified by name and and had complaints of 9/10 R hip and low back pain. Sit to stand completed from bed level with SBA followed by functional mobility to the bathroom with SBA and use of w/w. There she transferred on/off standard commode with SBA and use of w/w. Clothing management completed with SBA and toilet hygiene completed with supervision while seated. Pt then stood sink side to wash her hands with SBA. While reaching for the paper towel pt had one retrograde LOB that required Sweta to correct. Functional mobility completed back to the EOB where pt was requesting to rest at this time due to pain. Pt transferred sit to supine with SBA. There she was left with call light in hand, tray table in place, and bed alarm activated for safety. Continue with rec D/C plan to SNF. JOLANTA Renteria/Nubia
[2019-12-06] MEDS ORDERED: HYDROCODONE-AC1 EAC1 PO (12:24)
[2019-12-06] MEDS ORDERED: FLEET ENEMA 13133 ML R (12:24)
[2019-12-06] MEDS ORDERED: ENOXAPARIN30 MG/0.2 SC (12:24)
--- NOTE | 2019-12-06 13:15 | NUR ---
PHYSICAL THERAPY TREATMENT TIME: 17 MINUTES TOTAL OUT 12:30 PM Patient presented to therapy in supine with head of bed elevated and bed alarm on. Patient says she has increased pain in the R hip. Patient was identified by name and on wristband. Patient completed sit to stand from EOB with SBA. Patient ambulated with Walker and CGA for 50' X 1 and Close Supervision. Patient had no LOB with gait. Patient did complain of some increased pain in the R hip this afternoon. Patient transferred back to supine in bed with SBA. Patient was left in supine in bed with head of bed elevated and bed alarm on. Patient was 1:1 with this PLASTICS FACTORY WORKER for 17 minutes. EMMETT VENTURA PLASTICS FACTORY WORKER
--- NOTE | 2019-12-06 14:22 | NUR ---
PHYSICAL THERAPY CO-SIGN I approve of the Physical Therapy notes written above. Ida Stern PT
--- NOTE | 2019-12-06 14:34 | NUR ---
OCCUPATIONAL THERAPY CO-SIGN I approve of the Occupational Therapy notes written above. TYRELL BERNABE OTR/Nubia
--- NOTE | 2019-12-06 15:08 | NUR ---
BINDERY MACHINE TENDER SPOKE WITH SHEA MEJIA ABOUT DISCHARGE. BINDERY MACHINE TENDER ARRANGED FOR [facility] TO TRANSPORT THE PATIENT AT 4PM AND WOULD MEET STAFF AT THE FRONT DOORS. BINDERY MACHINE TENDER MADE ADAMA AWARE. BINDERY MACHINE TENDER CONTACTED LISSA KAPLAN AND LEFT MESSAGE ON VOICEMAIL. WILL FAX DISCHARGE ORDERS TO [facility].
--- NOTE | 2019-12-06 15:09 | NUR ---
PATIENT TO BE DISCHARGED AT 1600.
--- NOTE | 2019-12-06 15:20 | NUR ---
MEDICATED WITH PRN NORCO PER ORDER AND REQUEST FOR R HIP PAIN.
--- NOTE | 2019-12-06 16:09 | NUR ---
PATIENT DISCHARGED TO [facility].
--- NOTE | 2019-12-06 16:14 | NUR ---
NURSE TO NURSE GIVEN TO KAYLENE.
== END 2019-12-06 16:09 | disposition other institution (70) | DRG 481 ==
LOC: ED 13:15 → 5E 14:51 → EDHOLD 14:51 → 5E 16:20
PROVIDERS: Emergency Medicine; Orthopaedic Surgery; ADMIT Internal Medicine; ATTEND Internal Medicine
PROC: 0QS606Z Reposition Right Upper Femur with Intramedullary Internal Fixation Device, Open Approach (ICD-10-PCS; principal; 2019-11-28)
DX: S72.141A Displaced intertrochanteric fracture of right femur, initial encounter for closed fracture (principal); F33.9 Major depressive disorder, recurrent, unspecified; E44.1 Mild protein-calorie malnutrition; Z68.1 Body mass index [BMI] 19.9 or less, adult; K59.09 Other constipation; E55.9 Vitamin D deficiency, unspecified; E78.2 Mixed hyperlipidemia; F41.1 Generalized anxiety disorder; R62.7 Adult failure to thrive; G89.29 Other chronic pain; M54.5 Low back pain; Z20.828 Contact with and (suspected) exposure to other viral communicable diseases; W18.39XA Other fall on same level, initial encounter; Z88.6 Allergy status to analgesic agent; Z90.49 Acquired absence of other specified parts of digestive tract; Y93.89 Activity, other specified; Y92.098 Other place in other non-institutional residence as the place of occurrence of the external cause; Y99.8 Other external cause status

== ENCOUNTER 2019-12-17 14:58 | Inpatient (IN) | payer OTHER ==
[~2019-12-17] VITALS: Ht 170.1 cm; Wt 40.4 kg
[~2019-12-17 14:58] MED LIST changes: +ENOXAPARIN30 MG/0.2 SC; +FLEET ENEMA 13133 ML R; +HYDROCODONE-AC1 EAC1 PO; +LORAZEPAM1 MG PO
[2019-12-17 15:23] VITALS: BP 85/49
[2019-12-17 16:16] LABS: EOS % 0.5 % (1.0-4.0); HEMATOCRIT 40.7 % (37.0-47.0); LYMPH % 31.1 % (27.0-41.0); MEAN CELL VOLUME 96.7 fl (81.0-99.0); MEAN CORPUSCULAR HGB 30.6 pg (27.0-31.0); MEAN CORPUSCULAR HGB CONC 31.7 g/dl (33.0-37.0); MEAN PLATELET VOLUME 8.7 fl (9.6-12.3); MONO # 0.7 10*3/uL (0.1-1.0); MONO % 11.6 % (3.0-9.0); NEUT # 3.6 10*3/uL (2.3-7.9); NEUT % 56.5 % (47.0-73.0); PLATELET COUNT AUTOMATED 291 10*3/uL (130-400); RED BLOOD COUNT 4.21 10*6/uL (4.10-5.10); WHITE BLOOD COUNT 6.3 10*3/uL (4.8-10.8)
[2019-12-17 16:26] LABS: ACT PARTIAL THROMBO TIME 22.5 SECONDS (20.0-32.1); INTERNATIONAL NORM RATIO 0.9 (2.0-3.5)
[2019-12-17 16:33] LABS: ALBUMIN 3.2 gm/dl (3.1-4.5); ALKALINE PHOSPHATASE 252 U/L (45-117); BUN 16 mg/dl (7-24); CHLORIDE 101 mmol/L (98-107); CREATININE 0.83 mg/dL (0.55-1.02); LIPASE 148 U/L (73-393); POTASSIUM 4.1 mmol/L (3.5-5.1); SGOT/AST 22 IU/L (3-35); SGPT/ALT 28 U/L (12-78); SODIUM 138 mmol/L (136-145); TOTAL PROTEIN 7.2 gm/dL (6.4-8.2)
[2019-12-17 16:35] LABS: TROPONIN I < 0.015 ng/ml (<0.045)
[2019-12-17 16:46] LABS: BILIRUBIN Negative (Negative); BLOOD Negative (Negative); CLARITY Clear (Clear); COLOR Yellow (Yellow); GLUCOSE Negative (Negative); KETONE Negative (Negative); LEUKO ESTERASE Trace (Negative); NITRITE Negative (Negative); PH 5.5 (4.5-8.0); SPECIFIC GRAVITY 1.015 (1.001-1.030); UROBILINOGEN 0.2 E.U./dl (0.0-1.0)
[2019-12-17 18:51] VITALS: BP 78/48
[2019-12-17 19:03] VITALS: BP 96/45
[2019-12-17 19:31] VITALS: BP 108/45
[2019-12-18 05:32] VITALS: BP 110/50
[2019-12-18 08:23] VITALS: BP 139/72
[2019-12-18 10:33] VITALS: BP 118/57
[2019-12-18] MEDS ORDERED: VITAMIN D3100 MCG PO (12:33)
[2019-12-18] MEDS ORDERED: RISPERDAL3 M1 PO (12:34)
[2019-12-18] MEDS ORDERED: ONDANSETRON8 MG PO (12:35)
[2019-12-18] MEDS ORDERED: VITAMIN D31250 MC1 PO (12:37)
[2019-12-18] MEDS ORDERED: DULCOLAX STOOL100 MG PO (12:40)
[2019-12-18] MEDS ORDERED: LIPITOR10 MG PO (12:41)
[2019-12-18] MEDS ORDERED: FLEET ENEMA 13133 ML R (12:45)
[2019-12-18] MEDS ORDERED: INVEGA6 MG PO (12:59)
== END 2019-12-18 11:04 | disposition home health service (06) | DRG 641 ==
LOC: ED 14:58 → EDHOLD 18:38
PROVIDERS: Emergency Medicine; ADMIT Internal Medicine; ATTEND Internal Medicine
DX: E86.1 Hypovolemia (principal); E44.1 Mild protein-calorie malnutrition; Z68.1 Body mass index [BMI] 19.9 or less, adult; I95.9 Hypotension, unspecified; E78.2 Mixed hyperlipidemia; K59.09 Other constipation; F41.1 Generalized anxiety disorder; M54.5 Low back pain; G89.29 Other chronic pain; F25.0 Schizoaffective disorder, bipolar type; I12.9 Hypertensive chronic kidney disease with stage 1 through stage 4 chronic kidney disease, or unspecified chronic kidney disease; N18.30 Chronic kidney disease, stage 3 unspecified; R62.7 Adult failure to thrive; S72.141D Displaced intertrochanteric fracture of right femur, subsequent encounter for closed fracture with routine healing; X58.XXXD Exposure to other specified factors, subsequent encounter; Z88.5 Allergy status to narcotic agent; Z88.6 Allergy status to analgesic agent; Z88.8 Allergy status to other drugs, medicaments and biological substances; Z90.49 Acquired absence of other specified parts of digestive tract; Z82.49 Family history of ischemic heart disease and other diseases of the circulatory system; Z80.9 Family history of malignant neoplasm, unspecified; Z79.899 Other long term (current) drug therapy

== ENCOUNTER 2019-12-18 11:03 | Inpatient (IN) | payer OTHER ==
[~2019-12-18] VITALS: Wt 37.6 kg
--- NOTE | 2019-12-18 12:26 | NUR ---
CIRO MCKEON a 69 year old F admitted via wheel chair from the EMERGENCY ROOM as a emergency 72 hr. hold admission. Arrived on unit at 1226. ALLERGIES: CODEINE, ASAPRIN, PSEUDOPHERDRINE, EFFEXOR AND FLEXERIL. Vital signs are: 97.3-92-17 90/60. The client signed the following forms with stated understanding: Authorization For The Release of Medical Information, Clothing List, Consent to Voluntary Admission and Hospitalization, Consent and Release Forms/Receipt of Rights, Acknowledgement of Advance Directive Information, Behavioral Health Consent Form, and Informed Consent of Medications. Admitted under the services of Dr. SMITH HOOPER,[facility]. A search was conducted and hazardous articles were removed. Client was oriented to the unit. PATIENT IS ALERT AND ORIENT X4; ABLE TO VOICE NEEDS. WEIGHT BEARING TOLERATED. ADMITS TO HAVING VISUAL AND AUDITORY HALLUCINATIONS. MOOD IS SLIGHTLY DEPRESSED. PRN TYLENOL 650MG PO FOR GROIN PAIN, RATING 5/10. PATIENT STATES SHE HAS PAIN WITH MOVEMENT TO RIGHT LOWER EXTREMITY. DENIES HI/SI. SKIN ASSESSMENT COMPLETED, SURGICAL INCISIONS TO RIGHT HIP X 3 PROXIMAL, MEDIAL AND DISTAL. ALEENA DELCID
[2019-12-18] MEDS ORDERED: VITAMIN D3100 MCG PO (12:33)
[2019-12-18] MEDS ORDERED: RISPERDAL3 M1 PO (12:34)
[2019-12-18] MEDS ORDERED: ONDANSETRON8 MG PO (12:35)
[2019-12-18] MEDS ORDERED: VITAMIN D31250 MC1 PO (12:37)
[2019-12-18 12:39] VITALS: BP 90/60
[2019-12-18] MEDS ORDERED: DULCOLAX STOOL100 MG PO (12:40)
[2019-12-18] MEDS ORDERED: LIPITOR10 MG PO (12:41)
[2019-12-18] MEDS ORDERED: FLEET ENEMA 13133 ML R (12:45)
[2019-12-18] MEDS ORDERED: INVEGA6 MG PO (12:59)
--- NOTE | 2019-12-18 13:09 | NUR ---
Nursing screen received and chart reviewed. Patient was recently discharged from SNF after hip surgery. If patient should have difficulty in ADLs or functional mobility then refer to occupational therapy. Thank you. Elysia Alexander OTR/L
--- NOTE | 2019-12-18 13:11 | NUR ---
PHYSICAL THERAPY Screen received pt admitted with hypotension hx of bipolar disorder and depression. Pt with recent IM nail for R hip fx approximately 3 weeks ago. Please consult PT if pt has a decline in functional status, thank you Ida Stern PT
--- NOTE | 2019-12-18 15:04 | NUR ---
NO FURTHER COMPLAINTS OF PAIN. PRN TYLENOL EFFECTIVE.
--- NOTE | 2019-12-18 15:08 | NUR ---
DR. HERNÁNDEZ NOTIFIED OF NEW ADMISSION, MEDICATIONS REVIEW AND VERIFIED.
--- NOTE | 2019-12-18 15:44 | NUR ---
PM GROUP/LEISURE INTERESTS PT DID NOT ATTEND AFTERNOON GROUP THERAPY. PT WAS IN BED RESTING.
[2019-12-18 19:07] VITALS: BP 121/67
[2019-12-18 19:22] VITALS: BP 121/67
--- NOTE | 2019-12-19 05:40 | NUR ---
PATIENT OBSERVED ON Q 15 MIN CHECKS TO HAVE SLEPT APPROX 9 HOURS WITH X1 BRIEF AWAKENING TO USE THE RESTROOM. NO DISTRESS NOTED.
[2019-12-19 07:27] VITALS: BP 104/68
--- NOTE | 2019-12-19 08:30 | NUR ---
Treatment Plan meeting was held this a.m. with Dr. Carroll, RN, AT, CONSERVATION ENFORCEMENT OFFICER-S and Stroke Program Coordinator. Plan for discharge Next Week. Pt. would like to return home at discharge.
[2019-12-19 08:39] LABS: THYROID STIM HORMONE (HS) 0.605 uIU/ml (0.358-4.75)
--- NOTE | 2019-12-19 08:40 | NUR ---
PRN NORCO ONE TAB PO GIVEN AT THIS TIME PER PT REQUEST FOR C/O RIGHT HIP PAIN RATED LEVEL 8/10. RIGHT HIP INCISION ASSESSED. SHERIF HAVE BEEN REMOVED. INCISION IS HEALING WELL. NO S/S INFECTION NOTED. NO OPEN AREAS NOTED. PT DECLINED TO HAVE DRESSING APPLIED. WILL CONT TO MONITOR.
[2019-12-19 08:48] LABS: VITAMIN D, 25-HYDROXY 58.2 ng/mL (30-100)
--- NOTE | 2019-12-19 10:00 | NUR ---
URIEL HOGAN. ON UNIT TO SEE PT AT THIS TIME.
--- NOTE | 2019-12-19 11:47 | NUR ---
AM GROUP PT DID NOT ATTEND MORNING GROUP THERAPY. PT WAS IN BED RESTING.
--- NOTE | 2019-12-19 12:37 | NUR ---
Met with pt individually. Pt was pleasant. She spoke of her weight loss and that she knows she must eat to gain strength. Pt voiced that she was pleased with herself because she was able to walk to the activity room and then back to her room today. Pt stated that is the most she has walked in quite a few days. Pt confirmed that she was hearing persecutory hallucinations as well as command hallucinations. Pt also confirmed that she has no relief from these voices. Pt stated, "I try to tell myself that they are not real. I try to pray them away. Nothing works. I'm so tired...just so tired." Empathized with pt and provided support. Pt then voiced concern about her cat being cared for while pt is in [facility]. After meeting with pt, this instructional writer phoned pt's sister Lillian and learned that Lillian is caring for pt's cat. Informed pt of this.
--- NOTE | 2019-12-19 13:27 | NUR ---
Spoke to Antwan at [facility]. Pending ref # [id number]. Clinical faxed to [phone]. Awaiting response.
--- NOTE | 2019-12-19 13:41 | NUR ---
PRN MOM 30ML PO GIVEN AT THIS TIME PER PT REQUEST FOR C/O CONSTIPATION. WILL MONITOR FOR EFFECT.
--- NOTE | 2019-12-19 15:51 | NUR ---
PM GROUP/FUN AND GAMES PT DID NOT ATTEND AFTERNOON GROUP THERAPY. PT WAS IN BED RESTING.
--- NOTE | 2019-12-19 17:52 | NUR ---
P- DEPRESSED MOOD, ISOLATIVE, PT REPORTS INTERMITTENT DELUSIONS AND COMMAND HALLUCINATIONS. PT CONTRACTS FOR SAFETY. I- ORIENTATION, MOOD AND BEHAVIORS ASSESSED. ASSESSED PT FOR SI/HI, INTENT OR PLAN. ASSESSED PT FOR S/S HALLUCINATIONS, PARANOIA AND/OR DELUSIONS. MEDICATIONS ADMINISTERED PER PHYSICIAN'S ORDERS. ASSISTANCE WITH ADL CARE PROVIDED NEEDED. ENCOURAGED PT TO ATTEND AND PARTICIPATE IN [facility] GROUPS AND ACTIVITIES. R- PT IS ALERT AND ORIENTED X4. MEMORY APPEARS TO BE INTACT. RESPS EASY AND EVEN ON ROOM AIR. MOOD APPEARS DEPRESSED, FLAT AFFECT. SPEECH IS SOFT, COHERENT, ABLE TO MAKE NEEDS KNOWN WITHOUT DIFFICULTY. PT DENIES SI/HI, INTENT OR PLAN. PT STATES "I DID THAT YEARS AGO", PT SHOWS THIS RN SCARS FROM [facility] [place] ON HER WRIST. PT STATES "I WON'T DO THAT AGAIN". PT ADMITS TO AUDITORY HALLUCINATIONS, ADMITS TO HEARING VOICES AND STATES "SOMETIMES THEY TELL ME TO HURT MYSELF BUT I WON'T DO IT". PT CONTRACTS FOR SAFETY WITH STAFF, AGREES TO ALERT STAFF IF COMMAND HALLUCINATIONS OR SUICIDAL IDEATIONS OCCUR. PT HAS BEEN PLEASANT, CALM, COOPERATIVE AND MEDICATION COMPLIANT. NO AGGRESSIVE BEHAVIORS OR DISTRESS NOTED. P- PLAN TO CONTINUE CURRENT TREATMENT, CONTINUE TO MONITOR MOOD AND BEHAVIORS, PROVIDE APPROPRIATE REORIENTATION AND REDIRECTION NEEDED. CONTINUE TO ENCOURAGE MEDICATION COMPLIANCE WELL GROUP ATTENDANCE AND PARTICIPATION.
[2019-12-19 20:00] VITALS: BP 106/58
--- NOTE | 2019-12-19 22:51 | NUR ---
PATIENT ALERT AND ORIENTED X4. PT ISOLATIVE TO ROOM AND BED SINCE BEGINNING OF SHIFT. PT GUARDED/DISMISSIVE DURING 1:1 AND STATED SHE WAS JUST TIRED AND READY FOR BED. PT DENIES SI/HI OR HALLUCINATIONS, NO NOTED RESPONDING TO INTERNAL STIMULI, CONTRACTED FOR SAFETY. PT MEDICATION COMPLIANT WITHOUT DIFFICULTY AFTER REVIEW. NO PHYSICAL COMPLAINTS NOTED. PT CONTINUES TO REFUSE TX TO INCISION SITES, STATES "THEY ARE JUST FINE". PT CURRENTLY LAYING DOWN WITH EYES CLOSED, RESPIRATIONS EASY AND REGULAR, NO DISTRESS NOTED. PLAN IS TO CONTINUE TO MONITOR MOOD AND BEHAVIORS. MAINTAIN Q 15 MIN CHECKS AND PRN FOR SAFETY.
--- NOTE | 2019-12-20 02:09 | NUR ---
PATIENT RECEIVED PRN NORCO 5/325 1 TAB ORDERED BY PHYSICIAN FOR C/O RIGHT HIP AND LOWER BACK PAIN WITH A RATING OF 5/10. NO OTHER PHYSICAL COMPLAINTS NOTED.
--- NOTE | 2019-12-20 03:35 | NUR ---
PATIENT WITH NO FURTHER COMPLAINTS OF PAIN SINCE ADMINISTRATION OF PRN NORCO AT 209, PRN EFFECTIVE AT THIS TIME.
--- NOTE | 2019-12-20 06:01 | NUR ---
24 HOUR CHART CHECK COMPLETED.
--- NOTE | 2019-12-20 06:16 | NUR ---
PATIENT SLEPT APPROX 9 HOURS THIS SHIFT WITH X1 BRIEF AWAKENING. NO DISTRESS NOTED.
[2019-12-20 07:46] VITALS: BP 107/69
--- NOTE | 2019-12-20 08:30 | NUR ---
Treatment Plan meeting was held this a.m. with Dr. Carroll via telephone, ROLL GRINDER Gilberto RN, AT, BODY COVERER-S and Extension Supervisor in attendance. Plan for discharge Next week. Pt. at this point will return home, she does not want to return to [facility].
--- NOTE | 2019-12-20 11:36 | NUR ---
Met with pt individually this AM. Pt was pleasant. Discussed DPOAHC and pt stated that she would like to complete this document in order to make her daughter Nelly Selinsgrove her POA. Informed pt that this conventional underwriter would phone Nelly to obtain her home address so that the document could be completed. Pt voiced understanding.
--- NOTE | 2019-12-20 11:38 | NUR ---
Family meeting with pt's daughter Nelly Mujica via the phone. Nelly voiced concerns about pt's "failure to thrive." Discussed services for pt in her home. Nelly stated that pt does have homemaking services through [facility]. Nelly shared that pt is resistant to these services but will accept the help with Nelly's insistance. Pt also was scheduled with Mikaela for VNA. She had one VNA visit after discharge from [facility] and return to [facility]. Nelly believes that a blister pack for pt's meds would benefit pt. Nelly stated that she believes that pt easily gets her medications confused. Also discussed home delivered meals for pt. Nelly stated that pt enjoyed going to a restaurant almost daily prior to the fall and fx hip. Nelly also shared that pt has had problems with eating in the past because the command hallucinations tell her to not eat. Informed Nelly that pt is wanting to complete DPOAHC naming Nelly as pt's agent. Nelly voiced understanding.
--- NOTE | 2019-12-20 11:38 | NUR ---
AM GROUP PT DID NOT ATTEND MORNING GROUP THERAPY. PT WAS IN BED RESTING.
--- NOTE | 2019-12-20 11:53 | NUR ---
Returned to pt's room after speaking with pt's daughter. Found pt in bed on her side with a grimacing expression on her face. Informed pt that this caption writer had the DPOA papers ready to complete. Pt stated, "I can't do anything right now. I'm too tormented right now. The voices are bothering me too much." Empathized with pt and informed her that this caption writer had spoken with pt's daughter. Pt perked up and asked how Nelly was. When this caption writer told pt that Nelly is well and that she loves and is concerned about pt, pt stated, "That's not true. She doesn't love me." Pt then stated that she needed to be alone. As this caption writer left pt's room, pt stated, "Thanks, Jerri, for everything."
--- NOTE | 2019-12-20 13:26 | NUR ---
IP 7 days sanya per Jewel at [facility]. 12/17-12/23, NRS 12/23. Ref # [id number]. Jonathont reviewer will be Cynthia Hanson [phone].
--- NOTE | 2019-12-20 15:38 | NUR ---
PM GROUP/GRATITUDE PT DID NOT ATTEND AFTERNOON GROUP THERAPY. PT WAS IN BED RESTING.
--- NOTE | 2019-12-20 16:17 | NUR ---
Met with pt this afternoon in her room. Pt apologized for her behavior earlier. Assured pt that this food writer was not upset with pt. Assisted pt in competing the DPOAHC document. Placed a copy on pt's chart. Pt was very pleasant during interaction this afternoon and also appreciative.
[2019-12-20 19:06] VITALS: BP 122/68
--- NOTE | 2019-12-20 21:10 | NUR ---
24 HR chart check completed.
--- NOTE | 2019-12-20 23:52 | NUR ---
patient remains alert and verbal. orient x 4. IS ISOLATIVE TO ROOM AND BED SINCE ONSET OF SHIFT. IS PLEASANT DURING 1:1 BUT NOT OVERLY CONVERSANT. DENIES SI/HI. CONTRACTED FOR SAFETY. DENIES HEARING VOICES AT PRESENT. HAS BEEN MED COMPLIANT. WAS MEDICATED WITH PRN NORCO FOR HIP PAIN AT 10:30 PM. MEDICATION HAS BEEN HELPFUL. RESTING IN BED WITH EYES CLOSED. WILL CONTINUE TO MONITOR MOOD AND BEHAVIOR AND MAINTAIN Q 15 MIN CHECKS.
--- NOTE | 2019-12-21 06:04 | NUR ---
PATIENT SLEPT ABOUT 5 HOURS LAST NIGHT
--- NOTE | 2019-12-21 07:12 | NUR ---
ASSISTED X1 WITH ADLS. PT REPORTS SHE DID NOT SLEEP LAST NIGHT DURING FURTHER QUESTIONING PT STATES, " I AM HAVING HALLUCINATIONS. THEY ARE CALLING ME TRACEY DANTE AND THE DEVIL." PT COULD NOT DESCRIBED WHO "THEY" ARE. PROVIDED 1:1 AND ENCOURAGED PT TELL NURSING STAFF WHEN SHE IS EXPERIENCING SYMPTOMS LIKE THIS. NO FURTHER COMPLAINTS VOICED.
[2019-12-21 07:48] VITALS: BP 115/60
--- NOTE | 2019-12-21 12:38 | NUR ---
P: DEPRESSED MOOD WITH SLIGHT IRRIATION UNDERLYING. AUDITORY HALLUCINATIONS "VOICES ARE TELLING HER SHE IS TRACEY" I: ONE ON ONE FOR EMOTIONAL SUPPPORT, REDIRECT AND PROVIDE SPACE NEEDED. R: EFFECTIVE. PATIENT IS ALERT X4; ABLE TO VOICE NEEDS. MOOD IS DEPRESSED WITH SLIGHT IRRITABILITY NOTED AMD HAVING AUDITORY HALLUCINATIONS. DENIES DELUSIONS, HI/SI OR PAIN. MEDICATION COMPLAINT WITH EDUCATION PROVIDED. Q 15 MINUTE SAFETY CHECKS. 1 PERSON ASSIST WITH ACTIVITIES OF DAILY LIVING NEEDED. CONTINENT OF BOWEL AND BLADDER, SET UP FOR MEALS, INTAKES ARE GOOD WITH ADEQUATE FLIDS. AMBULATORY USING WALKER WITH STEADY GAIT. P: CONTINUE TO MONITOR FOR AUDITORY/VISUAL HALLUCINATION. PROVIDE ONE ON ONE, REDIRECTIN/ORIENTATION NEEDED
[2019-12-21 20:00] VITALS: BP 112/62
--- NOTE | 2019-12-22 00:41 | NUR ---
P-IRRITABLE, PREOCCUPIED I-REDIRECTION WITH 1:1 THERAPEUTIC INTERVENTIONS AND PRESENT REALITY. EDUCATE AND ENCOURAGE MEDICATION COMPLIANCE R-PATIENT MEDICATION COMPLIANT AT HS. PATIENT REFUSED NOURISHMENT BUT PROVIDED FLUIDS AT HS. PATIENT ISOLATIVE IN ROOM THIS SHIFT. PATIENT IRRITABLE AND PROCCUPIED WITH ROOM MATE AT HS. PATIENT STATING "SHE'S TRIED TO CLIMB IN BED WITH ME A FEW TIMES TONIGHT. THIS NURSE WITH ATTEMTPT PUT PATIENT IN ANOTHER ROOM. PATIENT DECLINED ROOM CHANGE. PATIENT WITH NO HALLUCINATIONS OR DELUSIONS PATIENT WITH NO HOMICIDAL OR SUICIDAL IDEATIONS. P-CONTINUE TO ENCOURAGE MEDICATION COMPLIANCE, CONTINUE TO PRESENT REALITY, ENCOURAGE GROUP THERAPY WHILE AWAKE
--- NOTE | 2019-12-22 06:42 | NUR ---
PATIENT SLEPT 8 HOURS OF UNINTERRUPTED SLEEP THROUGHOUT SHIFT. Q 15 MINUTE CHECKS MAINTAINED. 24 HR chart check completed.
[2019-12-22 07:17] VITALS: BP 116/58
--- NOTE | 2019-12-22 10:48 | NUR ---
DR JARAMILLO ON UNIT TO ASSESS PT, UPDATE PROVIDED.
--- NOTE | 2019-12-22 15:39 | NUR ---
P: PT MOOD IS DEPRESSED, PT ISOLATIVE TO HER ROOM THROUGHOUT THE DAY, ONLY COMING OUT FOR MEALS. I:: PROVIDE EMOTIONAL SUPPORT AND 1:1 FOR PT TO VOICE FEELINGS, ENCOURAGE MED COMPLIANCE AND PROVIDE MED EDUCATION, ENCOURAGE GROUP PARTICIPATION AND SOCIALIZATON R: PT ALERT TO PERSON, PLACE AND TIME. PT MED COMPLIANT WITHOUT DIFFICULTY, MED EDUCATION PROVIDED. PT CALM, MOOD IS DEPRESSED, PT CONTINUES TO ISOLATE TO HER ROOM THROUGHOUT THE DAY, COMING OUT FOR MEALS AND RETURNING TO HER ROOM SHORTLY AFTER EATING. PT DENIES ANY HALLUCIANTIONS OR DELUSIONS STATING "I WAS HEARING VOICES LAST NIGHT, BUT NOT RIGHT NOW. I'LL TELL YA IF THEY COME BACK." PT DENIES ANY SUICIDAL THOUGHTS, VERBALLY CONTRACTS FRO SAFETY IF SUCH THOUHGTS ARISE. PT AMBULATORY THROUGHOUT UNIT WITH WHEELED WALKER, GAIT STEADY. PT CONTINENT OF BOWEL AND BLADDER. P: PROVIDE EMOTIONAL SUPPORT AND 1:1 FOR PT TO VOICE FEELINGS, ENCOURAGE MED COMPLIANCE AND PROVIDE MED EDUCATION, ENCOURAGE GROUP PARTICIPATION AND SOCIALIZATION, MONITOR PT BEHAVIORS ON Q15 MIN SAFETY CHECKS, ENCOURAGE PT TO VOICE HALLUCINATIONS, DELUSIONS AND SUICIDAL THOUGHTS AND VERBALLY CONTRACT FOR SAFETY IF SUCH THOUGHTS ARISE.
[2019-12-22 19:27] VITALS: BP 137/46
--- NOTE | 2019-12-22 19:30 | NUR ---
Patient resting quietly at this time. Respirations easy and regular. Vital signs stable. No overt distress. CANDIE MATTA
--- NOTE | 2019-12-22 21:17 | NUR ---
PT STATING SHE IS NOT FEELING ANY BETTER, EXPRESSING DESIRE TO GO HOME, HALLUCINATING. PT ASSESSED FOR ORIENTATION, MOOD, AND AFFECT. ASSESSED FOR SI/HI. ASSESSED FOR HALLUCINATIONS AND DELUSIONS. ADMINISTERED MEDICATIONS PER ORDERS. ENCOURAGED TO CONSUME HS SNACK AND FLUIDS. PT IS ALERT, ORIENTED X4. MOOD IS DEPRESSED, AFFECT IS FLAT. PT DENIES SI/HI. PT STATES SHE IS HEARING VOICES TELLING HER THAT SHE "HAS THE GeekangelsASURY INSIDE OF ME". PT STATES SHE HAS TO "FIGHT TO GET THE TREASURY OUT TO GET RID OF IT". PT ACKNOWLEDGES THAT THESE ARE HALLUCINATIONS AND THAT IT IS NOT REAL. PT STATES SHE WANTS TO GO HOME BECAUSE "I DON'T FEEL ANY BETTER AND I CAN DO THE SAME THING AT HOME". PT STATES SHE WILL SPEAK ABOUT THIS WITH PSYCHIATRIST IN THE MORNING. MEDICATION COMPLIANT WITHOUT DIFFICULTY. PT REFUSED HS SNACK, REMAINING ISOLATIVE TO ROOM. WILL CONTINUE TO MONITOR Q15 MIN PER POLICY. WILL CONTINUE TO ENCOURAGE PT TO VERBALIZE INTERNAL THOUGHT PROCESS. WILL CONTINUE TO PROVIDE SUPPORT APPRORPIATE.
--- NOTE | 2019-12-22 22:49 | NUR ---
The patient has no complaints and is resting comfortably. CANDIE MATTA
--- NOTE | 2019-12-22 22:50 | NUR ---
24 HR chart check completed.
--- NOTE | 2019-12-23 06:47 | NUR ---
PATIENT SLEPT 7 HOURS OF INTERRUPTED SLEEP THROUGHOUT SHIFT. Q 15 MINUTE CHECKS MAINTAINED. 24 HR chart check completed. PATIENT MEDICATED WITH NORCO PER PATIENT COMPLAINT OF RIGHT LOWER EXTREMITY PAIN. MEDICATION WITH EFFECTIVE RESULT
[2019-12-23 08:00] VITALS: BP 118/69
--- NOTE | 2019-12-23 11:45 | NUR ---
AM GROUP PT WAS IN BED AT THE START OF AM GROUP THERAPY AND WAS INVITED TO ATTEND OR WAS OFFERED SOMETHING TO DO IN HER ROOM. PT DECLINED BOTH. PT WAS LATER BROUGHT INTO THE DAYROOM AND WAS GIVEN SOME GRAPE JUICE. PT CHOSE NOT TO PARTICIPATE BUT OBSERVED OR SAT QUIETLY WITH HER EYES CLOSED. PT WAS PLEASANT AND RESPONDED APPROPRIATELY TO QUESTIONS/CONVERSATION. PT EXPRESSED NO COMMAND HALLUCINATIONS WHILE IN GROUP.
--- NOTE | 2019-12-23 13:29 | NUR ---
Met with pt individually. Assisted pt in completing a [facility] Living Will Declaration. Discussed pt's discharge. Pt is interested in home delivered meals. Pt spoke of her cat Sridhar and of her children. Pt was tearful intermittently during convesation. Pt voiced that she realizes that she is alone too much but doesn't know what to do with herself. Discussed how COVID is making if even more difficult to have activities to go to and to have plans. Pt spoke about living closer to her children but then stated that she believes that they don't want her closer. Empathized with pt and provided support. Pt spoke of missing her cat. She also stated, "I don't miss where I live. It is not home. I don't think I will ever have a home again." Pt did also confirm that she continues to hear voices stating that she has had no relief from them. She also spoke of continued pain in her hip from the fx. Pt displayed a depressed mood with tearfulness. She confirmed auditory hallucinations.
--- NOTE | 2019-12-23 14:07 | NUR ---
CALL PLACED TO DR MTZ TO NOTIFY HIM WE DO NOT HAVE INVEGA 234 MG INJECTION AT THIS TIME. PER DR MTZ RESTART INVEGA 12 MG AT HS AND RESCHEDULE INVEGA 234 MG ON MONDAY. TING VILLATORO FOOD AIDE UPDATED.
--- NOTE | 2019-12-23 14:58 | NUR ---
DR. HERNÁNDEZ ON UNIT TO ASSESS PATIENT.
--- NOTE | 2019-12-23 15:00 | NUR ---
P: PATIENT HAVING AUDITORY HALLUCINATIONS, STATING "I'M TIRED OF THE VOICES, I DON'T KNOW WHAT THEY ARE SAYING" AND ISOLATIVE TO ROOM. PATIENT DOES ATTEND GROUP SESSIONS. I: ONE ON ONE FOR EMOTIONAL SUPPORT, EXPLORE IDEAS WITH PATIENT ON NON PHARMACOLOGICAL INTERVENTIONS TO BLOCK OUT THE VOICE. R: INEFFECTIVE. PATIENT STATES "I JUST LISTEN TO THEM" PATIENT IS ALERT TO PERSON, PLACE, TIME AND SITUATION; ABLE TO VOICE NEEDS. SELF AWARE OF HALLUCINATIONS. DENIES DELUSION, THOUGHTS OF HI/SI. PATIENT ON ROUNTINE MEDICATIONS FOR PAIN TO RIGHT HIP. DR. HERNÁNDEZ IN TODAY AND CHANGED MEDICATIONS FOR PAIN MANAGEMENT. PATIENT ATTENDING GROUP SESSION. 1 PERSON ASSIST WITH ACTIVITIES OF DIALY LIVING, CONTINENT OF BOWEL AND BLADDER. SET UP FOR MEALS, INTAKES VARY WITH MUCH ENCOURAGE MEAL INTAKES AND FLUIDS. RESISTIVE WITH VERBAL REMINDERS. AMBULATORY USING WHEELED WALKER. P: CONTINUE TO MONITOR FOR HALLUCINATIONS AND MOOD. PROVIDE ONE ON ONE FOR EMOTIONAL SUPPORT, ENCOURAGE GROUP SESSION AND MONITOR MEDCIATION COMPLAINCE. PROVIDE SPACE NEEDED.
--- NOTE | 2019-12-23 15:39 | NUR ---
Shift chart check completed.
--- NOTE | 2019-12-23 15:40 | NUR ---
PM GROUP PT DID NOT ATTEND AFTERNOON GROUP THERAPY. PT WAS IN BED RESTING.
--- NOTE | 2019-12-23 17:26 | NUR ---
PT REQUESTED NORCO FOR PAIN. PT RATED PAIN 8 OUT OF 10. NORCO GIVEN AT THIS TIME. EDUCATED PT ON USE OF PAIN MEDICATION AND CONSTIPATION. PT DENIED ANY CONSTIPATION AT THIS TIME.
--- NOTE | 2019-12-23 18:30 | NUR ---
PT RESTING COMFORTABLY IN BED AT THIS TIME.
[2019-12-23 19:09] VITALS: BP 107/68
--- NOTE | 2019-12-23 23:25 | NUR ---
PT ALERT AND ORIENTED X4. MOOD STABLE. DENIES SI/HI. DENIES HALLUCINATIONS, NO RESPONSE TO INTERNAL STIMULI NOTED. PT STATES, "I AM DOING OK." CALM AND COOPERATIVE [facility] STAFF. PT ANSWERS QUESTIONS APPROPRIATELY BUT WITH LIMITED RESPONSES. AMBULATES WITH WALKER. EDUCATED ON SAFETY PRECAUTIONS; USING WALKER AT ALL TIMES AND CALL LIGHT NEEDED. MEDICATION COMPLIANT AND EDUCATION PROVIDED. REFUSED HS SNACK BUT ACCEPTED FLUIDS. NO COMPLAINTS VOICED. Q 15 MIN CHECKS MAINTINED AND PRN.
--- NOTE | 2019-12-24 04:06 | NUR ---
PT REQUESTED PRN NORCO 5/325- 2 TABS FOR C/O RIP HIP PAIN RATED 5/10.
--- NOTE | 2019-12-24 04:13 | NUR ---
PT REQUESTED PRN NORCO 5/325- 2 TABS FOR C/O RIP HIP PAIN RATED 5/10.
--- NOTE | 2019-12-24 05:06 | NUR ---
PT RESTING COMFORTABLY IN BED AT THIS TIME. NO FURTHER COMPLAINTS OF PAIN VOICED. PRN NORCO EFFECTIVE.
--- NOTE | 2019-12-24 05:58 | NUR ---
PT SLEPT 6.5 HOURS INTERRUPTED. 24 HR chart check completed.
[2019-12-24 07:30] VITALS: BP 128/70
--- NOTE | 2019-12-24 09:00 | NUR ---
Treatment Plan meeting was held this a.m. with CHRISTEL Barker, RN, AT, CINDY-S and Restaurant Crew in attendance. Plan for discharge Monday. Pt. will return home.
--- NOTE | 2019-12-24 11:09 | NUR ---
Provided pt update to pt's daughter/DPOAHC Nelly Mujica.
--- NOTE | 2019-12-24 11:43 | NUR ---
AM GROUP PT DID NOT ATTEND MORNING GROUP THERAPY. PT WAS IN A QUIET ROOM SEATED ON A COUCH RESTING.
--- NOTE | 2019-12-24 12:06 | NUR ---
Orders received from Dr. Carroll to Resume Pt. Previous Home Health with [facility]. Call Placed to [facility] to discuss discharge Plans. Faxed Orders and Documentation to [facility].
--- NOTE | 2019-12-24 12:35 | NUR ---
Met with pt and discussed discharge needs further. Assisted pt in placing call to [facility] meal program. Left a voicemail message requesting a return call. ([facility] [phone]) Pt was pleasant during interaction. She did state that she continues to hear voices but at the present time the voices were not bothering her.
--- NOTE | 2019-12-24 13:25 | NUR ---
PATIENT COMPLAINING OF RIGHT THIGH PAIN, RATING PAIN 8/10. PRN NORCO 10/325MG PO GIVEN AT THIS TIME.
--- NOTE | 2019-12-24 13:45 | NUR ---
Occupational Therapy evaluation completed on three with full evaluation to follow. Recommend occupational therapy per plan of care and home with HH with increased supervision to ensure patient safety and independence upon discharge. Thank you for this referral. Lorena Martínez OTR/L
--- NOTE | 2019-12-24 14:29 | NUR ---
PATIENT CONTINUE TO COMPAIN OF PAIN TO RIGHT THIGH, RATING 8/10. PATIENT ATTEMPTED TO REFUSED THERAPY CONSULT. ONE ON ONE WITH PATIENT REGARDING THERAPY SERVICES. THERAPYT CONSULT COMPLETE. THERAPY CONCERNED WITH PATIENT'S COMPAINT OF PAIN. DR. HERNÁNDEZ RE-NOTIFIED REGARDING COMPLAINT COMPAINT OF PAIN. DR. HERNÁNDEZ ADJUSTED PAIN MEDICATIONS YESTERDAY AND DR. MTZ INCREASED CYMBALTA TO HELP WITH PAIN MANAGEMENT. PATIENT STATES "NOTHING WORKS" PATIENT RESTING IN BED, WARM BLANKET PROVIDED TO HELP EASE PAIN. CONTINUE TO MONITOR.
--- NOTE | 2019-12-24 15:00 | NUR ---
PATIENT RESTING IN BED QUITELY WITH EYES CLOSED. NO SIGNS OR SYMPTOMS OF PAIN OR GUARDING PRESENT. PRN NORCO EFFECTIVE.
--- NOTE | 2019-12-24 15:05 | NUR ---
PM GROUP PT DID NOT ATTEND AFTERNOON GROUP THERAPY. PT WAS IN BED RESTING.
--- NOTE | 2019-12-24 15:06 | NUR ---
Spoke with Dr. Gardner via telephone, Informed of Pt. complaints of Right Hip pain which was previous Post Op of approximately 1-2 weeks. Pt. complaining of Pain extending into the Groin. Concerns expressed by therapy with Pt. discharging Home and ability to complete therapy at home while in pain. Notified office of Consult for Right Hip Post Operative Pain. Dr. Eisenberg will see Pt. tommorow. Spoke with Fatimah in Orthopedic office.
--- NOTE | 2019-12-24 15:52 | NUR ---
PHYSICAL THERAPY Physical Therapy evaluation completed on U with full evaluation to follow. Recommend PT per plan of care and home with full HH services with increased supervision family support to ensure patient safety and independence upon discharge. Thank you for this referral. Ida Stern PT
--- NOTE | 2019-12-24 18:20 | NUR ---
PT A&O X4. IRRITABLE AT TIMES. PT CONTINUOUSLY C/O PAIN. PT ASKED FOR MORE PAIN MEDICATIONS BEFORE IT WAS TIME FOR THE NEXT DOSE. THIS NURSE EXPLAINED THAT TO THE PT AND THE PT STATED BUT ITS 8 OUT OF 10. TALKED BRIEFLY ABOUT NONPHARMACOLOGICAL INTERVENTIONS AND PT WALKED AWAY IN AN IRRITABLE MOOD. PT SLEEPS AND SITS QUIETLY WITH NO GRIMACING NOTED THROUGHOUT THE DAY. PT WITHDRAWN AND ISOLATIVE. COMES OUT OF ROOM FOR MEALS AND THEN HEADS BACK TO HER ROOM AND NAPS ON/OFF THROUGHOUT THE DAY. PT IS GUARDED AND DOESNT OPEN UP TO THIS NURSE. WILL CONTINUE TO MONITOR BEHAVIORS WITH Q15 MINUTE SAFETY CHECKS. WILL CONTINUE TO EDUCATE THE PT ON NONPHARMACOLOGICAL INTERVENTIONS AND MEDICATIONS. SEE [facility] FLOWS[facility]ET FOR SPECIFIC MONITORING.
[2019-12-24 20:00] VITALS: BP 128/60
--- NOTE | 2019-12-24 20:53 | NUR ---
PRN MYACO REQUESTED BY PT FOR RIGHT HIP PAIN RATED 8/10.
--- NOTE | 2019-12-24 21:30 | NUR ---
PATIENT READY FOR BED AT THIS TIME. PATIENT REQUESTS A PULL UP TO BE WORN AT BEDTIME. Q 15 MINUTE SAFETY CHECKS MAINTAINED.
--- NOTE | 2019-12-24 21:53 | NUR ---
PT RESTING COMFORTABLY IN BED. NO FURTHER COMPLAINTS OF PAIN. PRN NORCO EFFECTIVE.
--- NOTE | 2019-12-24 23:42 | NUR ---
P-AUDITORY HALLUCINATIONS. ANXIOUS. I-ASSESSED MOOD, BEHAVIOR, HALLUCINATIONS AND OR DELUSIONS. ASSESSED SI/HI. ADMINISTERED MEDICATIONS PER PHYSICIANS ORDERS. PROVIDED 1:1 EMOTIONAL SUPPORT, OFFERED DIVERSIONAL ACTIVITIES, AND PRESENT REALITY. ENCOURAGED USE OF SAFETY DEVICES: USING WALKER AT ALL TIMES AND CALL LIGHT. R-ANXIOUS. PT STATES, "I CAN HEAR VOICES BUT CAN'T MAKE OUT WHAT THEY ARE SAYING." DENIES SI/HI. PT IS SELF AWARE AND STATES, "I KNOW THE VOICES ARE NOT REAL." PT ACCEPTED EMOTIONAL SUPPORT, REFUSED DIVERSIONAL ACTIVITIES. MEDICATION COMPLIANT. PT VERBALIZED UNDERSTANDING OF SAFETY MEASURES. P-WILL CONTINUE TO MONITOR MOODS, BEHAVIORS, HALLUCINATIONS/DELUSIONS, AND SI/HI. Q 15 MIN CHECKS MAINTAINED AND MONITORED.
--- NOTE | 2019-12-25 05:46 | NUR ---
PT SLEPT 7 HOURS INTERRUPTED. 24 HR chart check completed.
--- NOTE | 2019-12-25 07:24 | NUR ---
OT NOTE Prior to coming to the floor spoke with nurse and reported that therapy was coming to treat this pt. Nurse gave approval. Pt was seen this A.M. 1:1 for 24 minute OT session with SUPERVISOR GREEN END DEPARTMENT and nursing staff present for observation only. Upon arrival pt was supine in bed. Pt identified by name and and had complaints of 3/10 R hip pain at rest. Pt transferred supine to sit EOB with supervision. While sitting EOB pt donned B socks WI. Sit to stand completed from bed level with supervision followed by functional mobility around the room with supervision and use of w/w while gathering her clothing from the dresser. Pt then returned to the EOB where she doffed her gown and donned new shirt, pants and underpants with distant supervision. Sit to stand then completed from bed level with supervision followed by functional mobility into the bathroom with supervision. There she transferred on/off standard commode and completed entire toileting task with supervision. She then stood sink side while washing her hands and face with supervision. Throughout activity pt reported that her R hip pain had now increased to an 8/10. Functional mobility completed up to the dining mendoza with supervision and use of w/w where she was left sitting upright under [facility] staff supervision. Throughout all activity pt presented with good safety awareness of the walker. Continue with rec D/C plan to home with home health. JOLANTA Renteria/Nubia
--- NOTE | 2019-12-25 09:00 | NUR ---
Treatment Plan meeting was held this a.m. with Dr. Carroll via telephone, CHRISTEL Barker, RN, AT, JUNIOR COPYWRITER-S and Reflector Driller And Deburrer in attendance. Plan for discharge Monday. Pt. will return home at discharge.
--- NOTE | 2019-12-25 10:00 | NUR ---
DR. HERNÁNDEZ ON UNIT TO ASSESS PATIENT.
--- NOTE | 2019-12-25 11:09 | NUR ---
Received voicemail from Meenakshi at [employer]. IP 6 additional days sanya, 12/24-12/29 with a NRD 12/29 with [facility] at [phone]. Ref # [id number]
--- NOTE | 2019-12-25 11:28 | NUR ---
PATIENT COMPLAINING OF RIGHT HIP PAIN, RATING PAIN 8/10. PRN NORCO 10/325MG PO GIVEN AT THIS TIME.
--- NOTE | 2019-12-25 11:48 | NUR ---
AM GROUP PT ATTENDED MORNING GROUP THERAPY BUT CHOSE NOT TO PARTICIPATE IN ANY ACTIVITY. PT CHOSE TO QUIETLY OBSERVE. PT EXHIBITED NO ADVERSE BEHAVIORS WHILE IN GROUP.
--- NOTE | 2019-12-25 12:33 | NUR ---
ASKED PATIENT ABOUT PAIN RELIEF. PATIENT STATED "I GUESS SO", NO GRIMACING OR GARDING NOTED, PATIENT IN DINING ROOM, SITTING WITH EYES CLOSED. PRN NORCO EFFECTIVE.
--- NOTE | 2019-12-25 12:33 | NUR ---
ASKED PATIENT ABOUT PAIN, PATIENT STATED "I GUESS SO" PRN NORCO 10/325MG PO GIVEN AT THIS TIME.
--- NOTE | 2019-12-25 13:26 | NUR ---
DR. DAWKINS ON UNIT TO ASSESS PATIENT REGARDING RIGHT HIP. PATIENT COMPLAINS OF PAIN WHEN SITTING ON TOILET, WALKING 20-40 FEET AND SITTING. PATIENT SHOWED DR. DAWKINS LOCATION OF PAIN, REFERRING TO BACK PAIN. PER DR. DAWKINS TO NOTIFY PHYSICAL THERAPY OF PATIENT'S BACK PAIN AND NOT THE HIP AND TO WORK WITH PATIENT TO THIS AREA. DR. DAWKINS RECOMMENT LABS-CBC. DR. HERNÁNDEZ UPDATED.
--- NOTE | 2019-12-25 14:19 | NUR ---
PHYSICAL THERAPY TREATMENT TIME: OUT 07:20 AM 18 MINUTES TOTAL Patient presented to therapy in supine in bed this morning with head of bed flat and no complaints. Patient gives informed consent for treatment. Patient was identified by name and on wristband, Patient performed supine > sit on EOB with SBA. Patient sat on EOB with SBA. Patient completed STS from EOB with SBA. Patient ambulated with Walker and CGA- Close Supervision for 200' x 1 with no LOB. Patient sat in chair and performed seated mavis LE ther ex 2 x 10 reps each including LAQs, marches and heel/toe raises for strengthening. Patient completed 13 sit to stands in 30 seconds for the 30 STS test. Patient was left in activity room in seated position with U staff present. Patient was 1:1 with this INFANTRY INDIRECT FIRE CREWMEMBER for 18 minutes total. EMMETT VENTURA INFANTRY INDIRECT FIRE CREWMEMBER
--- NOTE | 2019-12-25 15:42 | NUR ---
PM GROUP PT DID NOT ATTEND AFTERNOON GROUP THERAPY. PT WAS IN BED RESTING
--- NOTE | 2019-12-25 16:01 | NUR ---
P- PT ADMITS TO AUDITORY HALLUCINATIONS. PT STATES "THEY TELL ME I SHOULD KILL MYSELF". PT DENIES THAT THE VOICES TELL HER TO ACTUALLY HARM HERSELF. PT STATES "I IGNORE THEM. I'M FINE". PT DENIES ACTIVE SUICIDAL IDEATIONS, PLAN OR INTENT. PT CONTRACTS FOR SAFETY. AND JOSE [facility] AWARE. I- ORIENTATION, MOOD AND BEHAVIORS ASSESSED. ASSESSED PT FOR SI/HI, INTENT OR PLAN. ASSESSED PT FOR S/S HALLUCINATIONS, PARANOIA AND/OR DELUSIONS. MEDICATIONS ADMINISTERED PER PHYSICIAN'S ORDERS. ASSISTANCE WITH ADL CARE PROVIDED NEEDED. ENCOURAGED PT TO ATTEND AND PARTICIPATE IN [facility] [place]. R- PT IS ALERT AND ORIENTED X4. MOOD APPEARS STABLE WITH APPROPRIATE AFFECT. SPEECH IS WNL AND COHERENT, ABLE TO MAKE NEEDS KNOWN WITHOUT DIFFICULTY. PT DENIES SI/HI, INTENT OR PLAN. PT DOES ADMIT TO AUDITORY HALLUCINATIONS STATING "I HEAR VOICES THAT TELL ME I SHOULD KILL MYSELF". PT DENIES ACTIVE SUICIDAL IDEATION, INTENT OR PLAN. PT STATES "I IGNORE THEM. I'M FINE". PT CONTRACTS FOR SAFETY. AND JOSE [facility] ARE AWARE. NO DELUSIONS OR PARANOIA VOICED. PT IS MEDICATION COMPLIANT WITHOUT DIFFICULTY. NO DISTRESS NOTED. P- PLAN TO CONTINUE CURRENT TREATMENT. CONTINUE TO MONITOR MOOD AND BEHAVIORS. PROVIDE APPROPRIATE REORIENTATION AND REDIRECTION NEEDED. CONTINUE TO ENCOURAGE MEDIATION COMPLIANCE WELL GROUP ATTENDANCE AND PARTICIPATION.
--- NOTE | 2019-12-25 17:04 | NUR ---
PATIENT COMPLAINING OF RIGHT LEG PAIN, RATING PAIN 8/10. PRN NORCO 10/325MG POP GIVEN AT THIS TIME.
--- NOTE | 2019-12-25 18:04 | NUR ---
NO FURTHER COMPLAINTS OF PAIN, PRN NORCO EFFECTIVE.
--- NOTE | 2019-12-25 18:44 | NUR ---
INVEGA SUSTENNA 234MG IM GIVEN TO LEFT BUTTOCK. PT TOLERATED WELL. PT EXPRESSED UNDERSTANDING OF MEDICATION.
--- NOTE | 2019-12-25 18:50 | NUR ---
PATIENT ENCOURAGED TO REPOSITION WHILE IN BED.
[2019-12-25 20:00] VITALS: BP 130/60
--- NOTE | 2019-12-26 01:43 | NUR ---
PT ALERT AND ORIENTED X4. MOOD STABLE. DENIES HALLUCINATIONS. DENIES SI/HI. CALM, COOPERATIVE AND INTERACTIVE WITH STAFF. PT LESS ISOLATIVE, SAT IN DINING ROOM AND WATCHED TV. AMBULATES WITH WALKER. PT CONTINENT OF BOWEL AND BLADDER. MEDICATION COMPLIANT AND EDUCATION PROVIDED. Q 15 MIN CHECKS MAINTAINED AND PRN.
--- NOTE | 2019-12-26 06:20 | NUR ---
PT SLEPT 7 HOURS. 24 HR chart check completed.
[2019-12-26 06:33] LABS: BASO % 0.2 % (0.0-1.0); EOS % 0.6 % (1.0-4.0); HEMATOCRIT 35.2 % (37.0-47.0); LYMPH % 31.9 % (27.0-41.0); MEAN CELL VOLUME 97.2 fl (81.0-99.0); MEAN CORPUSCULAR HGB 31.5 pg (27.0-31.0); MEAN CORPUSCULAR HGB CONC 32.4 g/dl (33.0-37.0); MEAN PLATELET VOLUME 9.1 fl (9.6-12.3); MONO # 0.7 10*3/uL (0.1-1.0); NEUT # 3.5 10*3/uL (2.3-7.9); NEUT % 56.3 % (47.0-73.0); PLATELET COUNT AUTOMATED 188 10*3/uL (130-400); RED BLOOD COUNT 3.62 10*6/uL (4.10-5.10); RED CELL DISTRI WIDTH 13.9 % (0-14.5); WHITE BLOOD COUNT 6.2 10*3/uL (4.8-10.8)
[2019-12-26 07:26] VITALS: BP 112/50
--- NOTE | 2019-12-26 07:29 | NUR ---
PHYSICAL THERAPY TREATMENT TIME: IN 07:29 AM 17 MINUTES TOTAL Patient presented to therapy in supine in bed with with report of a 5/10 pain level in the R hip at rest and 7/10 pain level in the R HIP with activity. Patient gives informed consent for treatment. Patient was identified by name and on wristband. Patient performed supine <> sit EOB with SBA. Patient sat on EOB with Supervision. Patient performed STS <> EOB with SBA. Patient ambulated 250' x 1 with Wh Walker and Close Supervision with no LOB or SOB. Patient did have increased pain in the R hip. Patient performed seated bilateral LE ther ex 2 x 10 reps each LE for strengthening the LEs in order to improve patient's functional mobility. Joe completed LAQs, marches and heel/toe raises. Patient was left in sitting in chair in activity room with [facility] STAFF and other patients present. Patient was 1:1 with this DIRECTOR OF DISTRICT OFFICE for 17 minutes total. EMMETT VENTURA DIRECTOR OF DISTRICT OFFICE
--- NOTE | 2019-12-26 07:30 | NUR ---
OT NOTE Prior to coming to the floor spoke with nurse and reported that therapy was coming to treat this pt. Nurse gave approval. Pt was seen this A.M. 1:1 for 20 minute OT session with FELT MACHINE MECHANIC and nursing staff present for observation only. Pt identified by name and and had complaints of 5/10 R hip pain at rest. Pt transferred supine to sit EOB with supervision. While sitting EOB pt donned B socks with supervision. Sit to stand completed from bed level with supervision followed by functional mobility to the bathroom with supervision and use of w/w. There she transferred on/off standard commode and completed all toileting task with supervision. She then stood sink side while washing her hands and face with supervision. Functional mobility completed to the dining mendoza with supervisiion and use of w/w. Pt presented with good w/w safety throughout entire session. Pt had complaints of 9/10 R hip pain with activity. Pt was left sitting upright at the table under [facility] staff supervision. Continue with rec D/C plan to home with home health. JOLANTA Renteria/Nubia
--- NOTE | 2019-12-26 08:15 | NUR ---
PATIENT REQUESTING PRN PAIN MEDICATION. RATING PAIN 8/10 TO RIGHT HIP/LEG. WILL REASSESS PAIN.
--- NOTE | 2019-12-26 09:15 | NUR ---
NO FURTHER COMPLIANTS OF PAIN, NORCO EFFECTIVE.
--- NOTE | 2019-12-26 10:30 | NUR ---
Treatment Plan meeting was held this a.m. with Dr. Carroll RN, COURT SPECIALIST-S and Retail Account Executive in attendance. Plan for discharge Possible Monday/Monday. Attempting to obtain Resonable Cost Medications for Pt. and [facility]range Post Hospital Care.
--- NOTE | 2019-12-26 11:40 | NUR ---
AM GROUP PT DID NOT ATTEND MORNING GROUP THERAPY. PT WAS IN BED RESTING.
--- NOTE | 2019-12-26 14:14 | NUR ---
P: PATIENT IS IRRITABLE, DEPRESSED, IN PAIN, PREOCCUPIED, ISOLATIVE. I: 1:1 FOR EMOTIONAL SUPPORT. ALLOW PATIENT TO VERBALIZE FEELINGS. REDIRECT/REORIENT NEEDED. ENCOURAGED GROUPS. R: EFFECTIVE. PATIENT IS ALERT AND ORIENTED X 4. PATIENT IS DEPRESSED AND SAD. PATIENT HAS FLAT AFFECT. PATIENT REMAINS IN PAIN. PATIENT WAS IRRITABLE AND A LITTLE UPSET WHEN THIS NURSE HAD TO TELL HER THE SCHEDULE FOR PAIN MEDICATION. PATIENT STATES DR HERNÁNDEZ TOLD HER THAT SHE CAN HAVE NORCO WHENEVER SHE WANTS IT. I LET PATIENT KNOW THAT THE PAIN MEDICATION IS SCHEDULED AROUND THE CLOCK EVERY 6 HOURS. PATIENT AMBULATES WITH WALKER. IS CONTINENT. PATIENT DENIES SI/HI. PATIENT DENIES ANY HALLUCINATIONS OR DELUSIONS AND DOES NOT APPEAR TO BE RESPDONDING TO ANY INTERNAL STIMULI. PATIENT IS ISOLATIVE TO HER ROOM FOR THE MOST PART. PATIENT IS MEDICATION COMPLIANT WITH EDUCATION. P: WILL CONTINUE TO MONITOR MOODS/BEHAVIORS. WILL CONTINUE TO ENCOURAGE GROUPS, MEDICATION COMPLIANCE AND VERBALIZING FEELINGS. Q 15 MINUTE SAFETY CHECKS MAINTAINED.
--- NOTE | 2019-12-26 15:05 | NUR ---
PATIENT NOW STATING SHE IS HAVING AUDITORY HALLUCINATIONS. SHE STATES THEY ARE TELLING HER WHAT TO DO, BUT SHE IS AWARE AND SAYS SHE NEVER FOLLOWS WHAT THEY TELL HER. AT THIS TIME, THEY ARE NOT TELLING HER TO HARM HERSELF OR OTHERS. PATIENT STILL DENIES ANY SI/HI. WILL CONTINUE TO MONITOR. Q 15 MINUTE SAFETY CHECKS MAINTAINED.
--- NOTE | 2019-12-26 15:17 | NUR ---
PHYSICAL THERAPY Patient had follow up by ordered LB exercises for flexion program as feels R hip pain is being referred from [facility] in [facility] position currently resting pain 08/15 pt states pain "sharp" today w occasional "burning" R anteriolateral aspect of leg and into knee no c/o LBP. Pt states she is due for pain medication. Educated and initiated gentle simple LB flexion of post pelvic tilt in supine 2 x 5 w 5 second hold. No complaints of increase pain with activity. Ed on breathing tech w ex and to maintain pain free area of motion. Intially required verbal/tactile cues for correct tech then able to perform on own with only cues for breathing activity. Deferred further assessment or ex at this time due to pt wanting to rest and for pain meds. Pt is able to perform above exercise safely in a safe position ed pt that will follow tomorrow to ensure consistency and issue ex sheet as approp. Pt for possible discharge over the weekend to home were she can continue program w HH therapy Ida Stern PT
--- NOTE | 2019-12-26 15:30 | NUR ---
PM GROUP PT DID NOT ATTEND AFTERNOON GROUP THERAPY. PT WAS IN BED RESTING.
[2019-12-26 19:13] VITALS: BP 116/64
--- NOTE | 2019-12-26 22:59 | NUR ---
P- ISOLATIVE. I-ASSESSED ORIENTATION, MOOD, AND HALLUCINATIONS. ASSESSED SI/HI. ADMINISTERED MEDICATIONS PER PHYSICIANS ORDERS AND EDUCATION PROVIDED. AMBULATES WITH WALKER. R-PT ALERT AND ORIENTED X4. MOOD STABLE. DENIES HALLUCINATIONS. DENIES SI/HI. MEDICATION COMPLIANT. CALM, COOPERATIVE AND INTERACTIVE WITH THIS STAFF. NO COMPLAINTS VOICED. P-WILL CONTINUE TO MONITOR MOOD AND HALLUCINATIONS. Q 15 MIN CHECKS MAINTAINED AND PRN.
--- NOTE | 2019-12-27 | NUR ---
ROUTINE NORCO ADMINISTERED AT THIS TIME. PAIN RATED 4/10, RIGHT HIP. ENCOURAGED PT TO REPOSITION WHILE IN BED.
--- NOTE | 2019-12-27 01:04 | NUR ---
ROUTINE NORCO EFFECTIVE. NO FURTHER COMPLAINTS OF PAIN. RESTIN IN BED.
--- NOTE | 2019-12-27 06:05 | NUR ---
ROUTINE NORCO GIVEN. PAIN RATED 3/10, RIGHT HIP.
--- NOTE | 2019-12-27 06:12 | NUR ---
ROUTINE NORCO GIVEN. PAIN RATED 3/10, RIP HIP. ENCOURAGED PT TO REPOSITION WHILE IN BED.
--- NOTE | 2019-12-27 06:24 | NUR ---
PT SLEPT 8 HOURS INTERRUPTED. 24 HR chart check completed.
--- NOTE | 2019-12-27 07:15 | NUR ---
OT NOTE Prior to coming to the floor spoke with nurse and reported that therapy was coming to treat this pt. Nurse gave approval. Pt was seen this A.M. 1:1 for 15 minute OT session with ROLL ICER MACHINE and nursing staff present for observation only. Upon arrival pt was supine in bed. Pt identified by name and and had complaints of 4/10 R hip pain. Pt transferred supine to sit EOB with supervision. Pt gathered clothing from various heights with supervision and use of w/w. While sitting EOB pt donned B socks and completed lower body dressing with supervision. Sit to stand completed from bed level with supervision and use of w/w for UE support. Functional mobility completed to the bathroom with supervision and use of w/w. There she transferred on/off standard commode and completed all toileting tasks with supervision. Functional mobility completed to the dining mendoza with supervision and use of w/w. Good w/w safety presented throughout session. There she was left sitting upright at the table under [facility] staff supervision. Continue with rec D/C plan to home with home health. JOLANTA Renteria/Nubia
[2019-12-27 07:28] VITALS: BP 109/62
--- NOTE | 2019-12-27 08:56 | NUR ---
PHYSICAL THERAPY TREATMENT TIME: OUT 07:15 AM 15 MINUTES TOTAL patient was supine in bed wit hhed of bed flat and bed alarm off. Patient has report of pain in the R hip and thigh of 5/10. Patient gives informed consent for treatment. Patient was identified by name and on wristband. Patient performed supine <> sit on EOB with Supervision. STS <> EOB SBA. Patient ambulated with Walker and Close Supervision for 250' x 1 with NO LOB and no mild increased pain in the R hip and R thigh. Patient was instructed in proper technique with PPT and was given written instructions for proper technique. Patient toerated gait well wit honly mild increased pain in the R hip and R thigh. Patient was left in sitting in chair and table in frnt of her in activity room with [facility] staff present and other patient's present. Patient was 1:1 with this JACQUARD LOOM CARD CHANGER for 15 minutes total. EMMETT VENTURA JACQUARD LOOM CARD CHANGER
--- NOTE | 2019-12-27 10:37 | NUR ---
PHYSICAL THERAPY CO-SIGN I approve of the Physical Therapy notes written above. ESTEVAN BOWERS PT,DPT
--- NOTE | 2019-12-27 11:03 | NUR ---
P- AUDITORY HALLUCINATIONS, ISOLATIVE. I- ORIENTATION, MOOD AND BEHAVIORS ASSESSED. ASSESSED PT FOR SI/HI, INTENT OR PLAN. ASSESSED PT FOR S/S HALLUCINATIONS, PARANOIA AND/OR DELUSIONS. MEDICATIONS ADMINISTERED PER PHYSICIAN'S ORDERS. ASSISTANCE WITH ADL CARE PROVIDED NEEDED. ENCOURAGED PT TO ATTEND AND PARTICIPATE IN [facility] GROUPS AND ACTIVITIES. R- PT IS ALERT AND ORIENTED X4. MEMORY INTACT. RESPS EASY AND EVEN ON ROOM AIR. MOOD STABLE WITH APPROPRIATE AFFECT. PT STATES "I FEEL WONDERFUL". PT DENIES FEELING SAD, DEPRESSED OR ANXIOUS. PT DENIES SI/HI, INTENT OR PLAN. PT DENIES COMMAND HALLUCINATIONS BUT ADMITS TO HEARING VOICES. PT STATES "THEY TELL ME I AM GOD". PT IS NOT BOTHERED BY THESE VOICES. PT IS CALM, PLEASANT AND COOPERATIVE. MEDICATION COMPLIANT WITHOUT DIFFICULTY. ISOLATIVE TO ROOM A MAJORITY OF THE SHIFT. NO DISTRESS NOTED. ROUTINE PAIN MEDICATION GIVEN PER ORDERS. PT HAS NOT VOICED ANY PAIN CONCERNS TO THIS RN P- PLAN TO CONTINUE CURRENT TREATMENT, CONTINUE TO MONITOR MOOD AND BEHAVIORS. PROVIDE APPROPRIATE REORIENTATION AND REDIRECTION NEEDED. CONTINUE TO ENCOURAGE MEDICATION COMPLIANCE WELL GROUP ATTENDANCE AND PARTICIPATION.
--- NOTE | 2019-12-27 11:55 | NUR ---
AM GROUP PT DID NOT ATTEND MORNING GROUP THERAPY. PT WAS IN BED RESTING.
--- NOTE | 2019-12-27 13:10 | NUR ---
Met with pt individually this AM. Discussed discharge fpr nex week. Discussed pt's previously planned visit to her son's home in [place] for Thanskgiving. Pt stated that she realizes that she is not able to physically make the plane trip. Discussed this further. Pt appeared to accept this without displaying a depressed mood.
--- NOTE | 2019-12-27 13:29 | NUR ---
DR HERNÁNDEZ ON UNIT TO ASSESS PT, UPDATE PROVIDED.
[2019-12-27 20:04] VITALS: BP 122/64
--- NOTE | 2019-12-27 22:38 | NUR ---
NO ADVERSE BEHAVIORS NOTED. PATIENT CALM, ISOLATIVE TO ROOM AND BED SINCE BEGINNING OF SHIFT. MEDICATION COMPLIANT WITHOUT DIFFICULTY AFTER REVIEW. DENIES SI/HI, HALLUCINATIONS, OR PAIN. AMBULATES WITH WHEELED WALKER, GAIT STEADY. INDEPENDENT WITH ADLS, CONTINENT OF BOWEL AND BLADDER. NO DISTRESS NOTED. PLAN IS TO CONTINUE TO MONITOR MOOD AND BEHAVIORS. MAINTAIN Q 15 MIN CHECKS AND PRN FOR SAFETY.
--- NOTE | 2019-12-28 06:25 | NUR ---
PATIENT OBSERVED ON Q 15 MIN CHECKS TO HAVE SLEPT APPROX 8.5 HOURS WITH X1 BRIEF AWAKENING TO USE TO THE RESTROOM. NO DISTRESS NOTED.
[2019-12-28 07:35] VITALS: BP 121/71
--- NOTE | 2019-12-28 10:42 | NUR ---
PT IS ALERT AND ORIENTED X3, LIVES AT HOME ALONE. PLAN ON DISCHARGING ON MONDAY. FALL PRECAUTIONS WITH ASSISTIVE DEVICES. ADMITS TO AUD/VISUAL HALLUICNATIONS. APPETITE IS FAIR. sKIN ASSESSMENT WILL BE DOCUMENTED BY THE WOUND CARE NURSE.
--- NOTE | 2019-12-28 11:24 | NUR ---
Pt rated pain 7/10 related to hip and buttocks.
--- NOTE | 2019-12-28 14:24 | NUR ---
FOLLOW UP ON THE EFFECTIVNESS AFTER TAKING NORCO SHE RATED HER SCORE AN 8 BUT THIS AFTER WALKING TO HER ROOM TO GET IM SHOT OF HALDOL. pT IS UP WALKING AND TALKING ON THE PHONE WITH FAMILY.
--- NOTE | 2019-12-28 18:41 | NUR ---
REACCESS PT PAIN LEVEL AFTERPLACEING THE FENTALY PATCH. PT STATES SHE IS STILL IN PAIN REPORTED AN 8. lOOKS PLEASANT AND NO SIGNS OF DISTRESS.
[2019-12-28 19:16] VITALS: BP 100/45
--- NOTE | 2019-12-29 06:07 | NUR ---
Received report, assumed care of patient at 1915. Patient found in common area, eating snacks and watching tv. Isolative, withdrawn. Denies SI, but confirms AH and feelings of depression. C/o pain in back and hip. Pain level 09/15. 0615-- Patient had 4.5 hours of sleep.
[2019-12-29 07:10] VITALS: BP 136/68
--- NOTE | 2019-12-29 08:16 | NUR ---
Pt denies having SI/HI but continues to have hallicunations aud/visual.
--- NOTE | 2019-12-29 13:25 | NUR ---
Pt is up in chair eating breakfast. Gave scheduled routine hydrocodone rated 8/10. Re access pain level is 4/10. Denies SI/HI pleasant but continues to voice hallicunations.
[2019-12-29 18:35] VITALS: BP 114/54
--- NOTE | 2019-12-29 19:05 | NUR ---
Received report assumed care of patient. Patient lying in bed, easily arousable. Skin warm/dry to touch. Resp even/unlabored. Denies SI, but admits to hearing voices. Q15 minutes observation checks performed to maintain safety. C/o pain level of 7/10. Also complains of having diarrhea with upset stomach. Will monitor patient closely.
--- NOTE | 2019-12-30 00:30 | NUR ---
Pain level post pain medication given @ 000.. 06/15.
--- NOTE | 2019-12-30 05:55 | NUR ---
Patient lying in bed with eyes open. 4.5 hours of sleep noted. Patient isolative to room entire shift. Continues with Q15 min checks for saftey. Fall and elopment precautions in place.
--- NOTE | 2019-12-30 07:26 | NUR ---
OT NOTE Prior to coming to the floor spoke with nursing staff and reported that therapy was coming to treat this pt. Nursing staff gave approval. Pt was seen this A.M. 1:1 for 24 minute OT session. Upon arrival pt was supine in bed. Pt identified by name and and had complaints of 8/10 R hip pain. Pt transferred supine to sit EOB with supervision. While sitting EOB pt donned B socks with supervision. Sit to stand completed from bed level with supervision followed by functional mobility to the bathroom with SBA due to poor walker navigation this session as presented by running her walker into items and the wall. Pt required tactile prompts to correct. Pt transferred on/off standard commode with SBA. Functional mobility was then completed to the dining mendoza with SBA and use of w/w, pt now presented with fair walker safety/navigation. Challenged pt's dynamic standing balance throughout and pt presented with F/F- standing balance throughout. Pt was left sitting upright in the dining mendoza under [facility] staff supervision. Continue with rec D/C plan to home health. JOLANTA Renteria/Nubia
--- NOTE | 2019-12-30 09:05 | NUR ---
PHYSICAL THERAPY TREATMENT TIME: OUT 0724 AM 18 MINUTES TOTAL Patient presented to therapy in supine with head of bed flat and report of mild pain in the R hip. Patient gives inforemd consent for treatment. Patient was identified by name and on wristband. Patient performed supine <> sitting on EOB with SBA. Patient completed STS from EOB with SBA. Patient completed STS <> commode with SBA. Patient ambulated with WH Walker and Close Supervision for 200' x 1 with no LOB and no increased R hip pain. patient sat in chair in activity room and performd seated bilaterl THER EX 2 x 10 reps each LE for strengthening. Patient performed LAQs, marches and heel/toe raises. Patient was left in sitting with table in front of her and breakfast with [facility] staff present in activity room. JOLANTA OCONNOR present as witness to this treatment. Patient was 1:1 with this COLOR WEIGHER for 18 minutes total. EMMETT VENTURA COLOR WEIGHER
--- NOTE | 2019-12-30 09:37 | NUR ---
Treatment team held this AM with Nawaf Post NP, packaging coordinator, and this CNC MANUFACTURING ENGINEER-S. Plan for discharge is for pt to return home with home health this week.
[2019-12-30 09:58] VITALS: BP 112/66
--- NOTE | 2019-12-30 10:19 | NUR ---
Pt up in chair eating breakfast. Stated she is hearing voices but cant understand. Complained of right hip pain rated 7/10. Fentanly patch placed yesterday which was increased to 25 mcg. group home worker working with family on discharge plans.
--- NOTE | 2019-12-30 14:05 | NUR ---
At 1200pm member had no pain rated a zero
--- NOTE | 2019-12-30 18:11 | NUR ---
Pt rated pain 5/10. The increase in the patch has helped with pain. No other complaints.
[2019-12-30 19:03] VITALS: BP 106/60
--- NOTE | 2019-12-30 19:11 | NUR ---
Received report, care assumed. Patient sitting in common area, watching tv. Walker at bedside. No distress noted. Denies SI at this time. States that she hears voices. Denies pain or discomfort. Q15 minutes observations performed. No distress noted.
--- NOTE | 2019-12-31 00:30 | NUR ---
Reass of pain after pain medication administered 05/16
--- NOTE | 2019-12-31 07:25 | NUR ---
OT NOTE Prior to coming to the floor spoke with director Almas and reported that therapy was coming to treat this pt, approval given. Pt was seen this A.M. 1:1 for 15 minute OT session with TAX ANALYST and nursing staff present for observation only. Upon arrival pt was supine in bed. Pt identified by name and and had complaints of 8/10 R hip pain. Pt transferred supine to sit EOB with supervision. While sitting EOB pt donned B socks with supervision. Sit to stand completed from bed level with SBA and use of w/w for UE support. Functional mobility completed to the bathroom with CGA and use of w/w due to being unsteady and presenting with poor walker safety. Pt transferred on/off standard commode with CGA due to poor safety with alignment this session. She then stood sink side while completing oral and hair care with CGA for safety. Thorughout pt presented with bouts of unsteady stance that required Sweta to correct. Functional mobility completed to the dining mendoza with CGA and use of w/w. There she was left sitting upright under [facility] staff supervision. Continue with rec D/C plan to home with home health. JOLANTA Renteria/Nubia
[2019-12-31 08:00] VITALS: BP 128/54
--- NOTE | 2019-12-31 08:17 | NUR ---
PT AWAKE, ALERT AND VERBAL. FEEDING SELF BREAKFAST. PT OFFERS NO COMPLAINTS. DURAGESIC PATCH IN PLACE TO UPPER BACK/LEFT SHOULDER NEAR NECK. NO DISTRESS NOTED. JOSE PMHNP- ON UNIT TO SEE PT AT THIS TIME.
[2019-12-31] MEDS ORDERED: DULOXETINE HCL60 MG PO (08:22)
[2019-12-31] MEDS ORDERED: HALDOL5 MG PO ×2 (08:22)
[2019-12-31] MEDS ORDERED: TRIHEXYPHENIDYL2 M3 PO (08:22)
[2019-12-31] MEDS ORDERED: VITAMIN D350 MC2 PO ×2 (08:22→10:36)
--- NOTE | 2019-12-31 08:48 | NUR ---
PHYSICAL THERAPY TREATMENT TIME: OUT 07:20 AM 15 MINUTES TOTAL. Patient presented to therapy in supine with head of bed flat and bed alarm not on. Patient gives informed consent for treatment. Patient was identified by name and on wristband. Patient performed supine <> sititng on EOB with SBA. Patient sat on EOB with SBA. Patient STS <> EOB with SBA. Patient ambulated into restroom where she STS <> commode with SBA. Patient ambulated with Walker and Close Supervision for 200' x 1 with no LOB and minimal increased pain in the R hip. Patient was left in sititng in chair in activity room with [facility] staff present. Patient waiting on breakfast. Patient was 1:1 with this SEED PACKER for 15 minutes total. EMMETT VENTURA SEED PACKER
[2019-12-31] MEDS ORDERED: Duragesic 25 M25 MCG T (10:36)
--- NOTE | 2019-12-31 10:37 | NUR ---
ON UNIT TO SEE PT AT THIS TIME. AWARE OF DISCHARGE FOR TODAY.
[2019-12-31 10:49] LABS: EOS # 0.1 10*3/uL (0.0-0.4); EOS % 1.1 % (1.0-4.0); HEMATOCRIT 40.1 % (37.0-47.0); LYMPH # 1.9 10*3/uL (1.3-4.4); LYMPH % 26.8 % (27.0-41.0); MEAN CELL VOLUME 100.5 fl (81.0-99.0); MEAN CORPUSCULAR HGB 31.1 pg (27.0-31.0); MEAN CORPUSCULAR HGB CONC 30.9 g/dl (33.0-37.0); MONO # 0.7 10*3/uL (0.1-1.0); MONO % 9.9 % (3.0-9.0); NEUT # 4.3 10*3/uL (2.3-7.9); NEUT % 61.9 % (47.0-73.0); PLATELET COUNT AUTOMATED 191 10*3/uL (130-400); RED BLOOD COUNT 3.99 10*6/uL (4.10-5.10); RED CELL DISTRI WIDTH 14.1 % (0-14.5)
[2019-12-31 11:07] LABS: ALKALINE PHOSPHATASE 198 U/L (45-117); BUN 19 mg/dl (7-24); CHLORIDE 103 mmol/L (98-107); CREATININE 0.84 mg/dL (0.55-1.02); POTASSIUM 3.9 mmol/L (3.5-5.1); SGOT/AST 24 IU/L (3-35); SGPT/ALT 28 U/L (12-78); SODIUM 140 mmol/L (136-145); TOTAL PROTEIN 6.4 gm/dL (6.4-8.2)
[2019-12-31] MEDS ORDERED: HALDOL DEC100 MG/1 M IM ×2 (11:24→15:36)
--- NOTE | 2019-12-31 11:31 | NUR ---
Pt. to discharge today. Pt. will return home. Follow up appointments scheduled with [facility] with Lily Guadarrama, Telehealth Appointment January 14, 2020 11:15 a.m. Primary Care Follow with Dr. Gardner January 06 12:00 in Person Appointment.
--- NOTE | 2019-12-31 11:38 | NUR ---
AM GROUP PT DID NOT ATTEND MORNING GROUP THERAPY. PT WAS IN BED RESTING. PT IS SET TO BE DISCHARGED FROM THE UNIT THIS AFTERNOON.
--- NOTE | 2019-12-31 15:02 | NUR ---
PATIENT'S SISTER AT [facility]. PATIENT ASSISTED TO WHEELCHAIR. ALL BELONGING AND DISCHARGE INSTRUCTION SENT WITH PATIENT OFF UNIT TO PRIVATE VEHICLE.
--- NOTE | 2019-12-31 15:32 | NUR ---
Patient discharged today to home with follow-up at [facility]. Pt will also have VNA with [employer] and home delivered meals through [employer]. Pt was pleasant and cooperative with staff. Pt continues to have auditory hallucinations at discharge but states that they have decreased.
--- NOTE | 2019-12-31 15:36 | NUR ---
PM GROUP PT ATTENDED AFTERNOON GROUP THERAPY AND PARTICIPATED BY PAINTING WITH WATERCOLORS. PT EXHIBITED NO ADVERSE BEHAVIORS WHILE IN GROUP.
--- NOTE | 2019-12-31 16:15 | NUR ---
PRIOR TO DISCHARGE THIS RN CONFIRMED WITH PT'S PSYCHIATRIC MEDICATIONS WITH TING VILLATORO [facility] D/T SOME PREVIOUS HOME MEDICATIONS BEING CONTINUED. [facility] AND [facility] DISCONTINUED FOR DISCHARGE PT HAD NOT BEEN RECIEVING THEM INPATIENT. JOSE WILL CALL IN OR ESCRIBE SCRIPT FOR HALDOL DECANOATE TO PT'S HOME PHARMACY SO THAT THIS MEDICATION WILL BE READY FOR GOLF PROFESSIONAL FOR HOME HEALTH NURSE TO ADMINISTER ON DUE DATE 01/27/20. ALSO SPOKE WITH REGARDING LISINOPRIL AND LIPITOR. REVIEWED PT'S BLOOD PRESSURES. PER CONTINUE LISINOPRIL AND LIPITOR FOR DISCHARGE.
--- NOTE | 2020-01-01 13:19 | NUR ---
PHYSICAL THERAPY CO-SIGN I approve of the Physical Therapy notes written above. Ida Stern PT
--- NOTE | 2020-01-01 16:46 | NUR ---
OCCUPATIONAL THERAPY CO-SIGN I approve of the Occupational Therapy notes written above. TYRELL BERNABE OTR/Nubia
== END 2019-12-31 15:02 | disposition home health service (06) | DRG 885 ==
LOC: 3N 11:03
PROVIDERS: Counselor Professional; Orthopaedic Surgery; ADMIT Psychiatry & Neurology Psychiatry; ATTEND Psychiatry & Neurology Psychiatry
DX: F25.0 Schizoaffective disorder, bipolar type (principal); N18.30 Chronic kidney disease, stage 3 unspecified; Z68.1 Body mass index [BMI] 19.9 or less, adult; E44.1 Mild protein-calorie malnutrition; F29 Unspecified psychosis not due to a substance or known physiological condition; M54.41 Lumbago with sciatica, right side; I12.9 Hypertensive chronic kidney disease with stage 1 through stage 4 chronic kidney disease, or unspecified chronic kidney disease; Z20.828 Contact with and (suspected) exposure to other viral communicable diseases; R62.7 Adult failure to thrive; I95.9 Hypotension, unspecified; E86.1 Hypovolemia; F17.210 Nicotine dependence, cigarettes, uncomplicated; F41.1 Generalized anxiety disorder; K59.03 Drug induced constipation; K31.89 Other diseases of stomach and duodenum; T40.2X5A Adverse effect of other opioids, initial encounter; E55.9 Vitamin D deficiency, unspecified; Z88.5 Allergy status to narcotic agent; Z88.6 Allergy status to analgesic agent; Z88.8 Allergy status to other drugs, medicaments and biological substances; Z90.49 Acquired absence of other specified parts of digestive tract; Y92.89 Other specified places as the place of occurrence of the external cause; Z88.2 Allergy status to sulfonamides

== ENCOUNTER 2020-01-21 16:52 | Emergency (ER) | payer OTHER ==
[~2020-01-21] VITALS: Ht 170.1 cm; Wt 45.4 kg
[~2020-01-21 16:52] MED LIST changes: +DULCOLAX STOOL100 MG PO; +DULOXETINE HCL60 MG PO; +Duragesic 25 M25 MCG T; +HALDOL DEC100 MG/1 M IM; +HALDOL5 MG PO; +INVEGA6 MG PO; +LIPITOR10 MG PO; +ONDANSETRON8 MG PO; +RISPERDAL3 M1 PO; +VITAMIN D3100 MCG PO; +VITAMIN D31250 MC1 PO; +VITAMIN D350 MC2 PO
[2020-01-21 17:08] VITALS: BP 125/64
== END 2020-01-21 17:29 | disposition home or self-care (01) ==
LOC: ED 16:52
DX: M54.5 Low back pain (principal); Z88.6 Allergy status to analgesic agent; Z88.8 Allergy status to other drugs, medicaments and biological substances; Z87.891 Personal history of nicotine dependence; W18.39XA Other fall on same level, initial encounter; Y93.89 Activity, other specified; Y92.89 Other specified places as the place of occurrence of the external cause; Y99.8 Other external cause status

== ENCOUNTER 2020-02-06 13:53 | Emergency (ER) | payer OTHER ==
[~2020-02-06] VITALS: Ht 170.1 cm; Wt 41.3 kg
[2020-02-06 16:59] LABS: HEMATOCRIT 44.1 % (37.0-47.0); LYMPH # 1.1 10*3/uL (1.3-4.4); LYMPH % 19.6 % (27.0-41.0); MEAN CELL VOLUME 94.2 fl (81.0-99.0); MEAN CORPUSCULAR HGB 30.8 pg (27.0-31.0); MEAN CORPUSCULAR HGB CONC 32.7 g/dl (33.0-37.0); MEAN PLATELET VOLUME 9.5 fl (9.6-12.3); MONO # 0.7 10*3/uL (0.1-1.0); MONO % 12.3 % (3.0-9.0); NEUT # 3.7 10*3/uL (2.3-7.9); NEUT % 67.7 % (47.0-73.0); PLATELET COUNT AUTOMATED 177 10*3/uL (130-400); RED BLOOD COUNT 4.68 10*6/uL (4.10-5.10); RED CELL DISTRI WIDTH 13.1 % (0-14.5); WHITE BLOOD COUNT 5.5 10*3/uL (4.8-10.8)
[2020-02-06 17:25] LABS: INTERNATIONAL NORM RATIO 0.9 (2.0-3.5)
[2020-02-06 17:32] LABS: ALBUMIN 3.3 gm/dl (3.1-4.5); ALKALINE PHOSPHATASE 150 U/L (45-117); BUN 14 mg/dl (7-24); CHLORIDE 101 mmol/L (98-107); CREATININE 0.69 mg/dL (0.55-1.02); LIPASE 187 U/L (73-393); POTASSIUM 4.3 mmol/L (3.5-5.1); SGOT/AST 30 IU/L (3-35); SGPT/ALT 35 U/L (12-78); SODIUM 136 mmol/L (136-145); TOTAL PROTEIN 7.2 gm/dL (6.4-8.2)
[2020-02-06 17:33] LABS: TROPONIN I < 0.015 ng/ml (<0.045)
[2020-02-06] MEDS ORDERED: DECADRON6 M1 PO (20:30)
[2020-02-06 20:42] VITALS: BP 154/55
== END 2020-02-06 20:58 | disposition home or self-care (01) ==
LOC: ED 13:53
PROVIDERS: Physician Assistant
DX: U07.1 COVID-19 (principal); Z88.8 Allergy status to other drugs, medicaments and biological substances; Z88.5 Allergy status to narcotic agent; Z79.899 Other long term (current) drug therapy

== ENCOUNTER 2020-02-11 12:41 | Emergency (ER) | payer OTHER ==
[~2020-02-11] VITALS: Wt 40.8 kg
[~2020-02-11 12:41] MED LIST changes: +DECADRON6 M1 PO
[2020-02-11 13:00] LABS: BASO % 0.2 % (0.0-1.0); HEMATOCRIT 41.4 % (37.0-47.0); LYMPH % 16.6 % (27.0-41.0); MEAN CELL VOLUME 92.4 fl (81.0-99.0); MEAN CORPUSCULAR HGB 30.4 pg (27.0-31.0); MEAN CORPUSCULAR HGB CONC 32.9 g/dl (33.0-37.0); MEAN PLATELET VOLUME 9.3 fl (9.6-12.3); MONO # 0.5 10*3/uL (0.1-1.0); MONO % 8.8 % (3.0-9.0); NEUT # 4.3 10*3/uL (2.3-7.9); NEUT % 73.9 % (47.0-73.0); PLATELET COUNT AUTOMATED 197 10*3/uL (130-400); RED BLOOD COUNT 4.48 10*6/uL (4.10-5.10); RED CELL DISTRI WIDTH 12.7 % (0-14.5); WHITE BLOOD COUNT 5.8 10*3/uL (4.8-10.8)
[2020-02-11 13:14] LABS: ACT PARTIAL THROMBO TIME 25.1 SECONDS (20.0-32.1); INTERNATIONAL NORM RATIO 0.9 (2.0-3.5)
[2020-02-11 13:18] LABS: ALBUMIN 2.7 gm/dl (3.1-4.5); ALKALINE PHOSPHATASE 129 U/L (45-117); BUN 12 mg/dl (7-24); CHLORIDE 107 mmol/L (98-107); POTASSIUM 3.4 mmol/L (3.5-5.1); SGOT/AST 19 IU/L (3-35); SGPT/ALT 37 U/L (12-78); SODIUM 137 mmol/L (136-145); TOTAL PROTEIN 6.4 gm/dL (6.4-8.2)
[2020-02-11 13:20] LABS: TROPONIN I < 0.015 ng/ml (<0.045)
[2020-02-11 14:20] VITALS: BP 134/64
[2020-02-11] MEDS ORDERED: ATIVAN1 MG PO (14:48)
== END 2020-02-11 18:33 | disposition home or self-care (01) ==
LOC: ED 12:41
PROVIDERS: Emergency Medicine
DX: F41.9 Anxiety disorder, unspecified (principal); R07.9 Chest pain, unspecified; Z88.6 Allergy status to analgesic agent; Z88.8 Allergy status to other drugs, medicaments and biological substances

== ENCOUNTER 2020-02-14 20:10 | Emergency (ER) | payer OTHER ==
[2020-02-14 20:15] VITALS: BP 131/61
[2020-02-14 20:29] LABS: BASO % 0.2 % (0.0-1.0); EOS % 0.1 % (1.0-4.0); HEMATOCRIT 42.4 % (37.0-47.0); LYMPH # 1.9 10*3/uL (1.3-4.4); LYMPH % 19.3 % (27.0-41.0); MEAN CELL VOLUME 92.4 fl (81.0-99.0); MEAN CORPUSCULAR HGB 30.5 pg (27.0-31.0); MEAN PLATELET VOLUME 9.4 fl (9.6-12.3); MONO % 10.1 % (3.0-9.0); PLATELET COUNT AUTOMATED 273 10*3/uL (130-400); RED BLOOD COUNT 4.59 10*6/uL (4.10-5.10); RED CELL DISTRI WIDTH 13.1 % (0-14.5)
[2020-02-14 20:46] LABS: ALBUMIN 3.2 gm/dl (3.1-4.5); ALKALINE PHOSPHATASE 159 U/L (45-117); BUN 16 mg/dl (7-24); CHLORIDE 103 mmol/L (98-107); CREATININE 0.93 mg/dL (0.55-1.02); POTASSIUM 3.9 mmol/L (3.5-5.1); SGOT/AST 18 IU/L (3-35); SGPT/ALT 31 U/L (12-78); SODIUM 139 mmol/L (136-145); TOTAL PROTEIN 6.9 gm/dL (6.4-8.2)
[2020-02-14 22:27] LABS: BILIRUBIN Negative (Negative); BLOOD Negative (Negative); CLARITY Clear (Clear); COLOR Yellow (Yellow); GLUCOSE Negative (Negative); KETONE 1+ (Negative); LEUKO ESTERASE Trace (Negative); NITRITE Negative (Negative)
[2020-02-14 22:55] LABS: EPITHELIAL CELLS 31-40
[2020-02-14 22:56] LABS: WBC 16-20 wbc/hpf (0-5)
== END 2020-02-15 | disposition home or self-care (01) ==
LOC: ED 20:10
PROVIDERS: Internal Medicine
DX: F25.9 Schizoaffective disorder, unspecified (principal); N18.30 Chronic kidney disease, stage 3 unspecified; U07.1 COVID-19; Z88.6 Allergy status to analgesic agent; Z88.8 Allergy status to other drugs, medicaments and biological substances; Z87.891 Personal history of nicotine dependence

== ENCOUNTER → 2020-05-29 | Outpatient (CLI) | payer OTHER | END | disposition home or self-care (01) | LOC: ORTHO 13:25 | PROVIDERS: ATTEND Orthopaedic Surgery | DX: S72.141D Displaced intertrochanteric fracture of right femur, subsequent encounter for closed fracture with routine healing (principal); X58.XXXD Exposure to other specified factors, subsequent encounter ==

== ENCOUNTER → 2020-06-10 | Outpatient (CLI) | payer MEDICARE | END | disposition home or self-care (01) | LOC: RAD 03:19 | PROVIDERS: ATTEND Nurse Practitioner Family | DX: Z13.820 Encounter for screening for osteoporosis (principal); Z78.0 Asymptomatic menopausal state; Z87.81 Personal history of (healed) traumatic fracture ==

== ENCOUNTER 2021-01-06 16:39 | Emergency (ER) | payer OTHER ==
[~2021-01-06] VITALS: Wt 45.4 kg
[2021-01-06 16:41] VITALS: BP 144/60
[2021-01-06 17:10] LABS: BASO % 0.1 % (0.0-1.0); EOS % 0.1 % (1.0-4.0); HEMATOCRIT 39.8 % (37.0-47.0); LYMPH % 11.6 % (27.0-41.0); MEAN CELL VOLUME 90.5 fl (81.0-99.0); MEAN CORPUSCULAR HGB 30.5 pg (27.0-31.0); MEAN CORPUSCULAR HGB CONC 33.7 g/dl (33.0-37.0); MEAN PLATELET VOLUME 9.5 fl (9.6-12.3); MONO # 1.1 10*3/uL (0.1-1.0); MONO % 12.1 % (3.0-9.0); NEUT # 6.7 10*3/uL (2.3-7.9); NEUT % 75.4 % (47.0-73.0); PLATELET COUNT AUTOMATED 255 10*3/uL (130-400); RED CELL DISTRI WIDTH 12.8 % (0-14.5); WHITE BLOOD COUNT 8.9 10*3/uL (4.8-10.8)
[2021-01-06 17:28] LABS: ALBUMIN 2.9 gm/dl (3.1-4.5); ALKALINE PHOSPHATASE 93 U/L (45-117); BUN 24 mg/dl (7-24); CHLORIDE 102 mmol/L (98-107); CREATININE 0.95 mg/dL (0.55-1.02); POTASSIUM 4.1 mmol/L (3.5-5.1); SGOT/AST 26 IU/L (3-35); SGPT/ALT 31 U/L (12-78); SODIUM 137 mmol/L (136-145); TOTAL PROTEIN 6.7 gm/dL (6.4-8.2)
[2021-01-07] MEDS ORDERED: HALOPERIDOL5 MG PO ×2 (10:59→11:06)
[2021-01-07] MEDS ORDERED: OLANZAPINE15 M2 PO (11:00)
[2021-01-07] MEDS ORDERED: CYMBALTA30 MG PO (11:01)
[2021-01-07] MEDS ORDERED: ATIVAN0.5 MG PO (11:01)
[2021-01-07] MEDS ORDERED: ATIVAN1 MG PO ×2 (11:02→11:05)
[2021-01-07] MEDS ORDERED: DULOXETINE HCL60 MG PO (11:06)
== END 2021-01-06 20:12 | disposition home or self-care (01) ==
LOC: ED 16:39
PROVIDERS: Emergency Medicine
DX: S32.9XXA Fracture of unspecified parts of lumbosacral spine and pelvis, initial encounter for closed fracture (principal); Z88.8 Allergy status to other drugs, medicaments and biological substances; W18.39XA Other fall on same level, initial encounter; Y93.89 Activity, other specified; Y92.89 Other specified places as the place of occurrence of the external cause; Y99.8 Other external cause status

== ENCOUNTER 2021-01-07 10:06 | Inpatient (IN) | payer OTHER ==
[~2021-01-07] VITALS: Ht 170 cm; Wt 43.0 kg
[2021-01-07] VITALS (7 sets, daily range): BP systolic 119–147; BP diastolic 54–62
[2021-01-07] MEDS ORDERED: HALOPERIDOL5 MG PO ×2 (10:59→11:06)
[2021-01-07] MEDS ORDERED: OLANZAPINE15 M2 PO (11:00)
[2021-01-07] MEDS ORDERED: CYMBALTA30 MG PO (11:01)
[2021-01-07] MEDS ORDERED: ATIVAN0.5 MG PO (11:01)
[2021-01-07] MEDS ORDERED: ATIVAN1 MG PO ×2 (11:02→11:05)
[2021-01-07] MEDS ORDERED: DULOXETINE HCL60 MG PO (11:06)
[2021-01-08 02:01] VITALS: BP 104/60
[2021-01-08 05:08] LABS: ALBUMIN 2.6 gm/dl (3.1-4.5); ALKALINE PHOSPHATASE 86 U/L (45-117); BUN 22 mg/dl (7-24); CHLORIDE 106 mmol/L (98-107); CHOLESTEROL 184 mg/dL (<200); CREATININE 0.62 mg/dL (0.55-1.02); LDL CHOLESTEROL 116 mg/dL (9-159); SGOT/AST 17 IU/L (3-35); SGPT/ALT 25 U/L (12-78); SODIUM 140 mmol/L (136-145); TOTAL PROTEIN 6.2 gm/dL (6.4-8.2); TRIGLYCERIDES 140 mg/dl (<150)
[2021-01-08 05:57] LABS: BASO % 0.1 % (0.0-1.0); EOS # 0.1 10*3/uL (0.0-0.4); EOS % 0.9 % (1.0-4.0); HEMATOCRIT 37.1 % (37.0-47.0); LYMPH # 1.3 10*3/uL (1.3-4.4); LYMPH % 17.7 % (27.0-41.0); MEAN CELL VOLUME 92.8 fl (81.0-99.0); MEAN CORPUSCULAR HGB CONC 32.3 g/dl (33.0-37.0); MEAN PLATELET VOLUME 9.3 fl (9.6-12.3); MONO # 1.2 10*3/uL (0.1-1.0); MONO % 15.6 % (3.0-9.0); NEUT # 4.9 10*3/uL (2.3-7.9); NEUT % 65.3 % (47.0-73.0); PLATELET COUNT AUTOMATED 258 10*3/uL (130-400); RED CELL DISTRI WIDTH 12.9 % (0-14.5); WHITE BLOOD COUNT 7.5 10*3/uL (4.8-10.8)
[2021-01-08 06:08] VITALS: BP 129/74
[2021-01-08 08:05] VITALS: BP 140/64
[2021-01-08 13:30] VITALS: BP 135/63
[2021-01-08 16:00] VITALS: BP 123/75
[2021-01-08 20:00] VITALS: BP 147/66
[2021-01-09] VITALS: BP 142/49
[2021-01-09 07:12] LABS: EOS # 0.1 10*3/uL (0.0-0.4); EOS % 2.6 % (1.0-4.0); HEMATOCRIT 38.2 % (37.0-47.0); LYMPH # 1.4 10*3/uL (1.3-4.4); LYMPH % 25.8 % (27.0-41.0); MEAN CELL VOLUME 93.9 fl (81.0-99.0); MEAN CORPUSCULAR HGB 30.2 pg (27.0-31.0); MEAN CORPUSCULAR HGB CONC 32.2 g/dl (33.0-37.0); MONO # 0.6 10*3/uL (0.1-1.0); MONO % 11.9 % (3.0-9.0); NEUT # 3.2 10*3/uL (2.3-7.9); NEUT % 59.5 % (47.0-73.0); PLATELET COUNT AUTOMATED 268 10*3/uL (130-400); RED BLOOD COUNT 4.07 10*6/uL (4.10-5.10); WHITE BLOOD COUNT 5.4 10*3/uL (4.8-10.8)
[2021-01-09 07:28] LABS: CHLORIDE 105 mmol/L (98-107); POTASSIUM 3.4 mmol/L (3.5-5.1); SODIUM 139 mmol/L (136-145)
[2021-01-09 07:50] LABS: BUN 17 mg/dl (7-24); CREATININE 0.57 mg/dL (0.55-1.02)
[2021-01-09 08:00] VITALS: BP 137/50
[2021-01-09 12:00] VITALS: BP 114/46
[2021-01-09 16:00] VITALS: BP 114/46
[2021-01-09 20:00] VITALS: BP 131/55
[2021-01-10] VITALS: BP 116/88
[2021-01-10 06:39] LABS: EOS # 0.1 10*3/uL (0.0-0.4); EOS % 1.8 % (1.0-4.0); HEMATOCRIT 37.2 % (37.0-47.0); LYMPH # 1.3 10*3/uL (1.3-4.4); LYMPH % 24.7 % (27.0-41.0); MEAN CELL VOLUME 93.5 fl (81.0-99.0); MEAN CORPUSCULAR HGB 30.2 pg (27.0-31.0); MEAN CORPUSCULAR HGB CONC 32.3 g/dl (33.0-37.0); MONO # 0.6 10*3/uL (0.1-1.0); MONO % 12.3 % (3.0-9.0); NEUT # 3.1 10*3/uL (2.3-7.9); PLATELET COUNT AUTOMATED 279 10*3/uL (130-400); RED BLOOD COUNT 3.98 10*6/uL (4.10-5.10); RED CELL DISTRI WIDTH 12.9 % (0-14.5); WHITE BLOOD COUNT 5.1 10*3/uL (4.8-10.8)
[2021-01-10 07:08] LABS: BUN 18 mg/dl (7-24); CHLORIDE 103 mmol/L (98-107); CREATININE 0.59 mg/dL (0.55-1.02); POTASSIUM 3.9 mmol/L (3.5-5.1); SODIUM 137 mmol/L (136-145)
[2021-01-10 08:00] VITALS: BP 146/92
[2021-01-10 08:19] LABS: BILIRUBIN Negative (Negative); BLOOD Negative (Negative); CLARITY Cloudy (Clear); COLOR Yellow (Yellow); GLUCOSE Negative (Negative); KETONE Trace (Negative); LEUKO ESTERASE 1+ (Negative); NITRITE Negative (Negative); SPECIFIC GRAVITY >= 1.030 (1.001-1.030); UROBILINOGEN 0.2 E.U./dl (0.0-1.0)
[2021-01-10 08:40] LABS: BACTERIA 2+; EPITHELIAL CELLS 21-30; MUCOUS 1+; WBC 21-30 wbc/hpf (0-5)
[2021-01-10 12:00] VITALS: BP 140/88
[2021-01-10 16:00] VITALS: BP 143/61
[2021-01-10 20:00] VITALS: BP 128/47
[2021-01-11] VITALS: BP 143/63
[2021-01-11 06:45] LABS: BASO % 0.2 % (0.0-1.0); EOS # 0.1 10*3/uL (0.0-0.4); EOS % 1.2 % (1.0-4.0); HEMATOCRIT 38.2 % (37.0-47.0); LYMPH # 1.6 10*3/uL (1.3-4.4); LYMPH % 27.9 % (27.0-41.0); MEAN CELL VOLUME 94.3 fl (81.0-99.0); MEAN CORPUSCULAR HGB 29.9 pg (27.0-31.0); MEAN CORPUSCULAR HGB CONC 31.7 g/dl (33.0-37.0); MEAN PLATELET VOLUME 9.2 fl (9.6-12.3); MONO # 0.8 10*3/uL (0.1-1.0); MONO % 13.6 % (3.0-9.0); NEUT # 3.2 10*3/uL (2.3-7.9); NEUT % 56.6 % (47.0-73.0); PLATELET COUNT AUTOMATED 297 10*3/uL (130-400); RED BLOOD COUNT 4.05 10*6/uL (4.10-5.10); RED CELL DISTRI WIDTH 13.2 % (0-14.5); WHITE BLOOD COUNT 5.7 10*3/uL (4.8-10.8)
[2021-01-11 07:04] LABS: BUN 16 mg/dl (7-24); CHLORIDE 104 mmol/L (98-107); SODIUM 139 mmol/L (136-145)
[2021-01-11 08:00] VITALS: BP 133/45
[2021-01-11 12:00] VITALS: BP 110/61
[2021-01-11 16:00] VITALS: BP 122/48
[2021-01-11 20:00] VITALS: BP 112/57
[2021-01-12] VITALS: BP 128/49
[2021-01-12 06:41] LABS: EOS # 0.1 10*3/uL (0.0-0.4); EOS % 1.4 % (1.0-4.0); HEMATOCRIT 35.5 % (37.0-47.0); LYMPH # 1.3 10*3/uL (1.3-4.4); LYMPH % 20.1 % (27.0-41.0); MEAN CELL VOLUME 94.4 fl (81.0-99.0); MEAN CORPUSCULAR HGB 30.3 pg (27.0-31.0); MEAN CORPUSCULAR HGB CONC 32.1 g/dl (33.0-37.0); MEAN PLATELET VOLUME 9.2 fl (9.6-12.3); MONO # 0.8 10*3/uL (0.1-1.0); MONO % 11.7 % (3.0-9.0); NEUT # 4.3 10*3/uL (2.3-7.9); NEUT % 66.5 % (47.0-73.0); PLATELET COUNT AUTOMATED 303 10*3/uL (130-400); RED BLOOD COUNT 3.76 10*6/uL (4.10-5.10); RED CELL DISTRI WIDTH 13.3 % (0-14.5); WHITE BLOOD COUNT 6.4 10*3/uL (4.8-10.8)
[2021-01-12 06:59] LABS: BUN 19 mg/dl (7-24); CHLORIDE 104 mmol/L (98-107); CREATININE 0.66 mg/dL (0.55-1.02); POTASSIUM 4.1 mmol/L (3.5-5.1); SODIUM 138 mmol/L (136-145)
[2021-01-12 07:40] VITALS: BP 134/62
[2021-01-12 11:55] VITALS: BP 127/62
[2021-01-12 16:00] VITALS: BP 102/49
[2021-01-12 20:00] VITALS: BP 135/50
[2021-01-13] VITALS: BP 121/51
[2021-01-13 06:42] LABS: EOS # 0.1 10*3/uL (0.0-0.4); EOS % 1.6 % (1.0-4.0); HEMATOCRIT 35.6 % (37.0-47.0); LYMPH # 1.5 10*3/uL (1.3-4.4); LYMPH % 24.6 % (27.0-41.0); MEAN CELL VOLUME 94.9 fl (81.0-99.0); MEAN CORPUSCULAR HGB 30.4 pg (27.0-31.0); MEAN PLATELET VOLUME 9.2 fl (9.6-12.3); MONO # 0.9 10*3/uL (0.1-1.0); MONO % 14.2 % (3.0-9.0); NEUT # 3.7 10*3/uL (2.3-7.9); NEUT % 59.1 % (47.0-73.0); PLATELET COUNT AUTOMATED 343 10*3/uL (130-400); RED BLOOD COUNT 3.75 10*6/uL (4.10-5.10); RED CELL DISTRI WIDTH 13.3 % (0-14.5); WHITE BLOOD COUNT 6.3 10*3/uL (4.8-10.8)
[2021-01-13 07:10] LABS: BUN 18 mg/dl (7-24); CHLORIDE 104 mmol/L (98-107); CREATININE 0.73 mg/dL (0.55-1.02); POTASSIUM 4.8 mmol/L (3.5-5.1); SODIUM 138 mmol/L (136-145)
[2021-01-13 08:00] VITALS: BP 109/38
[2021-01-13 12:00] VITALS: BP 157/58
[2021-01-13 16:00] VITALS: BP 130/56
[2021-01-13 20:00] VITALS: BP 138/52
[2021-01-14] VITALS: BP 115/58
[2021-01-14 08:00] VITALS: BP 110/60
[2021-01-14 12:00] VITALS: BP 123/55
[2021-01-14 16:00] VITALS: BP 100/49
[2021-01-14 20:00] VITALS: BP 127/51
[2021-01-15] VITALS: BP 156/71
[2021-01-15 08:00] VITALS: BP 128/66
[2021-01-15 12:00] VITALS: BP 124/64
[2021-01-15] MEDS ORDERED: Percocet 325 MG1 TAB PO (13:35)
[2021-01-15] MEDS ORDERED: VITAMIN D350 MC2 PO (13:35)
[2021-01-15] MEDS ORDERED: ATIVAN1 MG PO (13:37)
[2021-01-15 16:00] VITALS: BP 128/77; BP 160/83
[2021-01-15 20:00] VITALS: BP 129/50
[2021-01-16] VITALS: BP 117/44
[2021-01-16 07:03] LABS: BASO % 0.2 % (0.0-1.0); EOS # 0.1 10*3/uL (0.0-0.4); EOS % 1.5 % (1.0-4.0); HEMATOCRIT 34.1 % (37.0-47.0); LYMPH # 1.7 10*3/uL (1.3-4.4); LYMPH % 35.1 % (27.0-41.0); MEAN CELL VOLUME 95.5 fl (81.0-99.0); MEAN CORPUSCULAR HGB 30.5 pg (27.0-31.0); MONO # 0.6 10*3/uL (0.1-1.0); MONO % 12.5 % (3.0-9.0); NEUT # 2.4 10*3/uL (2.3-7.9); NEUT % 50.5 % (47.0-73.0); PLATELET COUNT AUTOMATED 378 10*3/uL (130-400); RED BLOOD COUNT 3.57 10*6/uL (4.10-5.10); RED CELL DISTRI WIDTH 13.1 % (0-14.5); WHITE BLOOD COUNT 4.8 10*3/uL (4.8-10.8)
[2021-01-16 07:28] LABS: CREATININE 0.59 mg/dL (0.55-1.02)
[2021-01-16 08:00] VITALS: BP 134/50
[2021-01-16 12:00] VITALS: BP 128/56
== END 2021-01-16 16:05 | DRG 542 ==
LOC: ED 10:06 → EDHOLD 10:49 → 5E 10:49
PROVIDERS: Family Medicine; Internal Medicine; Registered Nurse; Student in an Organized Health Care Education/Training Program; ADMIT Internal Medicine; ATTEND Internal Medicine
DX: M80.052A Age-related osteoporosis with current pathological fracture, left femur, initial encounter for fracture (principal); E43 Unspecified severe protein-calorie malnutrition; N39.0 Urinary tract infection, site not specified; S32.592A Other specified fracture of left pubis, initial encounter for closed fracture; N18.31 Chronic kidney disease, stage 3a; Z20.822 Contact with and (suspected) exposure to COVID-19; R26.2 Difficulty in walking, not elsewhere classified; R73.9 Hyperglycemia, unspecified; F25.0 Schizoaffective disorder, bipolar type; F32.A Depression, unspecified; W19.XXXA Unspecified fall, initial encounter; F41.9 Anxiety disorder, unspecified; I12.9 Hypertensive chronic kidney disease with stage 1 through stage 4 chronic kidney disease, or unspecified chronic kidney disease; B96.20 Unspecified Escherichia coli [E. coli] as the cause of diseases classified elsewhere; Z88.5 Allergy status to narcotic agent; Z88.6 Allergy status to analgesic agent; Z79.899 Other long term (current) drug therapy; Z90.49 Acquired absence of other specified parts of digestive tract; Y93.89 Activity, other specified; Y92.098 Other place in other non-institutional residence as the place of occurrence of the external cause; Y99.8 Other external cause status

== ENCOUNTER → 2022-10-17 | Outpatient (CLI) | payer OTHER ==
[~2022-10-17] MED LIST changes: +ATIVAN0.5 MG PO; +CYMBALTA30 MG PO; +HALOPERIDOL5 MG PO; +OLANZAPINE15 M2 PO; +Percocet 325 MG1 TAB PO
== END | disposition home or self-care (01) ==
LOC: ORTHO 01:13
PROVIDERS: ATTEND Orthopaedic Surgery
DX: S72.141A Displaced intertrochanteric fracture of right femur, initial encounter for closed fracture (principal); X58.XXXA Exposure to other specified factors, initial encounter; Y93.89 Activity, other specified; Y92.89 Other specified places as the place of occurrence of the external cause; Y99.8 Other external cause status

== ENCOUNTER → 2022-12-01 | Day surgery (SDC) | payer OTHER ==
[2022-11-28 14:08] VITALS: BP 130/71
[2022-11-28 17:06] LABS: ALKALINE PHOSPHATASE 110 U/L (46-116); BUN 13 mg/dl (9-23); CHLORIDE 104 mmol/L (98-107); POTASSIUM 3.9 mmol/L (3.4-5.1); SGPT/ALT 13 U/L (5-49); TOTAL PROTEIN 6.5 gm/dL (6.0-8.0)
[2022-12-01] VITALS (8 sets, daily range): BP systolic 109–137; BP diastolic 48–62
[~2022-12-01] VITALS: Ht 170.1 cm; Wt 29.5 kg
== END | disposition home or self-care (01) ==
LOC: SDC 11-28 13:15
PROVIDERS: ATTEND Orthopaedic Surgery
DX: Z46.89 Encounter for fitting and adjustment of other specified devices (principal); R63.0 Anorexia; I10 Essential (primary) hypertension; F25.9 Schizoaffective disorder, unspecified; F32.A Depression, unspecified; M81.0 Age-related osteoporosis without current pathological fracture; Z86.16 Personal history of COVID-19; Z79.899 Other long term (current) drug therapy; Z90.49 Acquired absence of other specified parts of digestive tract; Z90.710 Acquired absence of both cervix and uterus; Z90.89 Acquired absence of other organs; Z98.890 Other specified postprocedural states; Z88.5 Allergy status to narcotic agent; Z88.6 Allergy status to analgesic agent; Z91.048 Other nonmedicinal substance allergy status

== ENCOUNTER 2023-12-27 16:18 | Inpatient (IN) | payer OTHER ==
[~2023-12-27] VITALS: Ht 170.1 cm; Wt 34.6 kg
[2023-12-27] MEDS ORDERED: Magnesium Hydroxide 30 ML UDC PO PRN (16:45)
[2023-12-27] MEDS ORDERED: ACETAMINOPHEN 325 MG TAB PO PRN (16:45)
[2023-12-27] MEDS ORDERED: WATER STERILE IM PRN (16:45)
[2023-12-27] MEDS ORDERED: LORazepam 2 MG/ML VIAL IM PRN (16:45)
[2023-12-27] MEDS ORDERED: LORazepam 1 MG TAB PO PRN (16:45)
[2023-12-27] MEDS ORDERED: [UNRECOGNIZED DRUG - OTHER] IM PRN (16:45)
[2023-12-27] MEDS ORDERED: MG-AL HYDROXIDE/SIMETICONE 30 ML UDC PO PRN (16:45)
[2023-12-27] MEDS ORDERED: MELATONIN1 MG PO (16:52)
[2023-12-27] MEDS ORDERED: SIMVASTATIN10 MG PO (16:52)
[2023-12-27] MEDS ORDERED: Ondansetron4 MG PO (16:53)
[2023-12-27] MEDS ORDERED: POTASSIUM PO (16:54)
[2023-12-27] MEDS ORDERED: Ziprasidone Mesylate 20 MG VIAL IM PRN (17:00)
[2023-12-27] MEDS ORDERED: LORazepam 1 MG TAB PO SCH (18:00)
[2023-12-27 18:29] VITALS: BP 151/72
[2023-12-27] MEDS ORDERED: Ondansetron Hydrochloride 4 MG TAB PO PRN (18:30)
[2023-12-27 19:48] VITALS: BP 151/72
[2023-12-27] MEDS ORDERED: RISPERIDONE 2 MG TAB PO SCH (21:00)
[2023-12-28 06:15] LABS: ALKALINE PHOSPHATASE 95 U/L (46-116); BUN 6 mg/dl (9-23); CHLORIDE 103 mmol/L (98-107); CHOLESTEROL 238 mg/dL (<200); LDL CHOLESTEROL 164 mg/dL (9-159); POTASSIUM 3.5 mmol/L (3.4-5.1); TOTAL PROTEIN 6.8 gm/dL (6.0-8.0); TRIGLYCERIDES 123 mg/dl (<150)
[2023-12-28 06:17] LABS: SGPT/ALT < 7 U/L (5-49)
[2023-12-28 06:25] LABS: BASO % 0.2 % (0.0-1.0); EOS # 0.1 10*3/uL (0.0-0.4); HEMATOCRIT 41.7 % (37.0-47.0); MEAN CELL VOLUME 94.1 fl (81.0-99.0); MEAN CORPUSCULAR HGB 30.9 pg (27.0-31.0); MEAN CORPUSCULAR HGB CONC 32.9 g/dl (33.0-37.0); MEAN PLATELET VOLUME 9.4 fl (9.6-12.3); MONO # 0.5 10*3/uL (0.1-1.0); MONO % 10.3 % (3.0-9.0); NEUT # 3.2 10*3/uL (2.3-7.9); NEUT % 60.5 % (47.0-73.0); PLATELET COUNT AUTOMATED 206 10*3/uL (130-400); RED BLOOD COUNT 4.43 10*6/uL (4.10-5.10); RED CELL DISTRI WIDTH 12.4 % (0-14.5); WHITE BLOOD COUNT 5.2 10*3/uL (4.8-10.8)
[2023-12-28 08:00] VITALS: BP 136/77
[2023-12-28] MEDS ORDERED: RISPERIDONE 100 MG/0.28 ML SUSER.SYR SQ SCH (09:00)
[2023-12-28] MEDS ORDERED: Cholecalciferol 2,000 UNIT TABLET (50 MCG) PO SCH (10:00)
[2023-12-28] MEDS ORDERED: SIMVASTATIN 20 MG TAB PO SCH (10:00)
[2023-12-28 19:49] VITALS: BP 136/67
[2023-12-29 08:00] VITALS: BP 137/47
[2023-12-29] MEDS ORDERED: Rivastigmine Tartrate 4.6 MG/24 HR PATCH T SCH (09:00)
[2023-12-29] MEDS ORDERED: ERGOCALCIFEROL 50,000 IU CAP (1.25 MG) PO SCH (10:00)
[2023-12-29 20:00] VITALS: BP 140/60
[2023-12-30 08:00] VITALS: BP 112/59
[2023-12-30 20:00] VITALS: BP 132/62
[2023-12-31 01:12] LABS: BILIRUBIN Negative (Negative); BLOOD Negative (Negative); CLARITY Clear (Clear); COLOR Yellow (Yellow); GLUCOSE Negative (Negative); KETONE Trace (Negative); LEUKO ESTERASE 1+ (Negative); NITRITE Negative (Negative); PH 5.5 (4.5-8.0); SPECIFIC GRAVITY >= 1.030 (1.001-1.030); UROBILINOGEN 0.2 E.U./dl (0.0-1.0)
[2023-12-31 01:51] LABS: BACTERIA TRACE; WBC 21-30 wbc/hpf (0-5)
[2023-12-31 08:00] VITALS: BP 135/55
[2023-12-31] MEDS ORDERED: Rivastigmine Tartrate 9.5 MG/24 HR PATCH T SCH (09:00)
[2024-01-01 06:47] LABS: ALKALINE PHOSPHATASE 78 U/L (46-116); BUN 12 mg/dl (9-23); CHLORIDE 105 mmol/L (98-107); POTASSIUM 3.6 mmol/L (3.4-5.1); TOTAL PROTEIN 5.8 gm/dL (6.0-8.0)
[2024-01-01 06:50] LABS: BASO % 0.2 % (0.0-1.0); EOS # 0.2 10*3/uL (0.0-0.4); EOS % 2.5 % (1.0-4.0); HEMATOCRIT 37.7 % (37.0-47.0); MEAN CELL VOLUME 95.4 fl (81.0-99.0); MEAN CORPUSCULAR HGB 31.4 pg (27.0-31.0); MEAN CORPUSCULAR HGB CONC 32.9 g/dl (33.0-37.0); MEAN PLATELET VOLUME 9.9 fl (9.6-12.3); MONO # 0.7 10*3/uL (0.1-1.0); MONO % 10.3 % (3.0-9.0); NEUT # 3.9 10*3/uL (2.3-7.9); NEUT % 62.1 % (47.0-73.0); PLATELET COUNT AUTOMATED 183 10*3/uL (130-400); RED BLOOD COUNT 3.95 10*6/uL (4.10-5.10); RED CELL DISTRI WIDTH 12.9 % (0-14.5); WHITE BLOOD COUNT 6.3 10*3/uL (4.8-10.8)
[2024-01-01 06:53] LABS: SGPT/ALT < 7 U/L (5-49)
[2024-01-01 08:10] VITALS: BP 120/48
[2024-01-01 20:00] VITALS: BP 128/74
[2024-01-02 08:00] VITALS: BP 129/70
[2024-01-02] MEDS ORDERED: RIVASTIGMINE 13.3 MG/24 HR TDM T SCH (09:00)
[2024-01-02] MEDS ORDERED: Ceftriaxone Sodium 1 GM in SYRINGE INFUSION 10 ML IV SCH (10:00)
[2024-01-02] MEDS ORDERED: Ciprofloxacin Hydrochloride 500 MG TAB PO SCH (12:00)
[2024-01-02] MEDS ORDERED: CIPROFLOXACIN500 M4 PO (20:07)
[2024-01-03] MEDS ORDERED: RIVASTIGMINE1 EAC2 T (06:22)
[2024-01-03] MEDS ORDERED: UZEDY100 MG/0.2 SQ (06:22)
[2024-01-03] MEDS ORDERED: LORAZEPAM1 MG PO (06:22)
[2024-01-03 08:04] VITALS: BP 136/61
[2024-01-26] MEDS ORDERED: RISPERIDONE 100 MG/0.28 ML SUSER.SYR SQ SCH (09:00)
== END 2024-01-03 12:27 | DRG 885 ==
LOC: 3N 16:18
PROVIDERS: Internal Medicine; Nurse Practitioner; ADMIT Psychiatry & Neurology Psychiatry; ATTEND Psychiatry & Neurology Psychiatry
PROC: GZHZZZZ Group Psychotherapy (ICD-10-PCS; principal; 2023-12-28)
PROC: GZ56ZZZ Individual Psychotherapy, Supportive (ICD-10-PCS; 2023-12-28)
DX: F25.0 Schizoaffective disorder, bipolar type (principal); N18.31 Chronic kidney disease, stage 3a; F02.83 Dementia in other diseases classified elsewhere, unspecified severity, with mood disturbance; R64 Cachexia; F02.84 Dementia in other diseases classified elsewhere, unspecified severity, with anxiety; Z68.1 Body mass index [BMI] 19.9 or less, adult; F22 Delusional disorders; Z66 Do not resuscitate; K21.9 Gastro-esophageal reflux disease without esophagitis; E78.5 Hyperlipidemia, unspecified; M85.88 Other specified disorders of bone density and structure, other site; G30.9 Alzheimer's disease, unspecified; M54.9 Dorsalgia, unspecified; I12.9 Hypertensive chronic kidney disease with stage 1 through stage 4 chronic kidney disease, or unspecified chronic kidney disease; M81.0 Age-related osteoporosis without current pathological fracture; R63.6 Underweight; E55.9 Vitamin D deficiency, unspecified; E78.1 Pure hyperglyceridemia; Z86.16 Personal history of COVID-19; Z90.49 Acquired absence of other specified parts of digestive tract; Z87.891 Personal history of nicotine dependence; Z82.49 Family history of ischemic heart disease and other diseases of the circulatory system; Z83.3 Family history of diabetes mellitus; Z80.8 Family history of malignant neoplasm of other organs or systems; Z88.8 Allergy status to other drugs, medicaments and biological substances; Z91.09 Other allergy status, other than to drugs and biological substances; Z79.899 Other long term (current) drug therapy; Z79.01 Long term (current) use of anticoagulants